=== PATIENT | male | born 1965 | race Caucasian/White ===

== ENCOUNTER 2017-07-21 15:17 | Inpatient (IN) | payer OTHER ==
[2017-07-21 16:56] VITALS: BMI 26.7
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
[2017-07-21] MEDS ORDERED: MAGNESIUM HYDROX 2400MG/30ML ORAL SUSPENSION 30 ML CUP PO PRN (19:22)
[2017-07-21] MEDS ORDERED: LOPERAMIDE HCL 2 MG CAPSULE PO PRN (19:22)
[2017-07-21] MEDS ORDERED: IBUPROFEN 400 MG TABLET (FP) PO PRN (19:22)
[2017-07-21] MEDS ORDERED: guaiFENesin/D-METHORPHAN HB 10 ML UNIT-DOSE CUPS PO PRN (19:22)
[2017-07-21] MEDS ORDERED: MAG HYDROX/AL HYDROX/SIMETH 30 ML UNIT-DOSE CUP PO PRN (19:22)
[2017-07-21] MEDS ORDERED: NICOTINE POLACRILEX 2 MG GUM BC PRN (19:22)
[2017-07-21] MEDS ORDERED: MENTHOL/PHENOL 1 EACH UD MM PRN (19:22)
[2017-07-21] MEDS ORDERED: MAGNESIUM CITRATE 300 ML BOTTLE PO PRN (19:22)
[2017-07-21] MEDS ORDERED: ACETAMINOPHEN 325 MG TABLET (FP) PO PRN (19:22)
[2017-07-21] MEDS ORDERED: P-EPHED 60MG/TRIPROLIDI 2.5MG TABLET PO PRN (19:22)
[2017-07-21 21:11] LABS: URINE APPEARANCE CLEAR; URINE BILIRUBIN NEGATIVE (NEGATIVE); URINE BLOOD NEGATIVE (NEGATIVE); URINE COLOR YELLOW; URINE GLUCOSE (UA) NEGATIVE (NEGATIVE); URINE KETONE 1+ (NEGATIVE); URINE LEUK ESTERASE NEGATIVE (NEGATIVE); URINE NITRITE NEGATIVE (NEGATIVE); URINE PROTEIN NEGATIVE (NEGATIVE)
[2017-07-21] MEDS: NAPROXEN 500 MG TABLET (FP) PO SCH (21:38)
[2017-07-21] MEDS: MELATONIN 5 MG TABLETS PO SCH (21:38)
[2017-07-21] MEDS: ATORVASTATIN CA 40 MG TABLET (FP) PO SCH (21:38)
[2017-07-21] MEDS: THIAMINE HCL 100 MG TABLET (FP) PO SCH (21:39)
[2017-07-21] MEDS: chlordiazePOXIDE HCL 25 MG CAPSULE PO SCH ×2 (21:39→23:11)
[2017-07-21] MEDS: DIVALPROEX NA *ER* EXTEND REL 500 MG TABLET.SA (FP) PO SCH (23:09)
[2017-07-22] MEDS: chlordiazePOXIDE HCL 25 MG CAPSULE PO SCH ×4 (05:32→22:11)
--- NOTE | 2017-07-22 08:23 | EKG ---
Test Reason : Blood Pressure : / mmHG Vent. Rate : 094 BPM Atrial Rate : 094 BPM P-R Int : 154 ms QRS Dur : 098 ms QT Int : 392 ms P-R-T Axes : 056 051 032 degrees QTc Int : 490 ms NORMAL SINUS RHYTHM PROLONGED QT ABNORMAL ECG NO PREVIOUS ECGS AVAILABLE Confirmed by RAVI ORELLANA, LAUREN ([id number]) on 07/22/2017 8:22:46 AM Referred By: Confirmed By:LAUREN RODRIGUES MD
--- NOTE | 2017-07-22 09:03 | PN ---
BHS CIWA - CIWA Score Nausea/Vomitin-Mild Nausea/No Vomiting Muscle Tremors: 4-Moderate,w/Arms Extend Anxiety: 4-Mod. Anxious/Guarded Agitation: 4-Moderately Restless Paroxysmal Sweats: 1-Minimal Palms Moist Orientation: 0-Oriented Tacttile Disturbances: 1-Very Mild Itch/Numbness Auditory Disturbances: 0-None Visual Disturbances: 0-None Headache: 1-Very Mild CIWA-Ar Total Score: 16 BHS Progress Note (SOAP) Subjective: sweat tremor anxiety restlessness irritable mild headache and skin itch Objective: 07/22/17 09:03 Vital Signs Temperature 97.7 F 07/22/17 06:31 Pulse Rate 76 07/22/17 06:31 Respiratory Rate 18 07/22/17 06:31 Blood Pressure 106/76 07/22/17 06:31 O2 Sat by Pulse Oximetry (%) Laboratory Last Values Urine Color Yellow 07/21/17 20:00 Urine Appearance Clear 07/21/17 20:00 Urine pH 5.0 (5.0-8.0) D 07/21/17 20:00 Ur Specific [place] 1.024 (1.001-1.035) 07/21/17 20:00 Urine Protein Negative (NEGATIVE) 07/21/17 20:00 Urine Glucose (UA) Negative (NEGATIVE) 07/21/17 20:00 Urine Ketones 1+ (NEGATIVE) H 07/21/17 20:00 Urine Blood Negative (NEGATIVE) 07/21/17 20:00 Urine Nitrite Negative (NEGATIVE) 07/21/17 20:00 Urine Bilirubin Negative (NEGATIVE) 07/21/17 20:00 Urine Urobilinogen 2.0 mg/dL (0.2-1.0) 07/21/17 20:00 Ur Leukocyte Esterase Negative (NEGATIVE) 07/21/17 20:00 lab noted Assessment: 07/22/17 09:03 withdrawal sx Plan: continue detox
--- NOTE | 2017-07-22 09:13 | CONSULT ---
[facility] Psychiatric Consult - Data Date of interview: 07/22/17 Admission source: [facility] Identifying data: This is 52 years old male, single, homeless, on PA, with psychiatric hospitalization history, chronic Alcoholic, is seeking admission to detox. Substance Abuse History: Urine Drug Screen Results: BZO-Benzodiazepines. Smoking history: Current every day smoker. Have you smoked in the past 12 months: Yes. Aproximately how many cigarettes per day: 10. Hx Chewing Tobacco Use: No. Initiated information on smoking cessation: Yes. 'Breaking Loose' booklet given: 07/21/17. - Substance & Tx. History. Hx Alcohol Use: Yes. Hx Substance Use: No. Substance Use Type: Alcohol. Hx Substance Use Treatment: Yes ([facility] [place]). - Substances Abused. Alcohol. Route : Oral. Frequency: Daily. Amount used: VODKA - 1 QUART, BEER - 2 X (6 PACKS). Age of first use: 14. Date of Last Use: 07/21/17 Medical History: Patient reports history of HTN, right hip arthritis, BPH , Hypercholesterolemia, seizures. He denies suicide history. Patient was positive for benzodiazepine, reports taking librium at [facility] during recent hospitalization. Psychiatric History: Patient reports history of depression, reports recent admission to [facility] for safety, reports currently taking: Effexor XR 75mg poqd. Depakote 500mg po qhs Physical/Sexual Abuse/Trauma History: Denies Additional Comment: Urine Drug Screen Results: BZO-Benzodiazepines. Effexor XR 75mg poqd. Depakote 500mg po qhs Mental Status Exam - Mental Status Exam Alert and Oriented to: Person Cognitive Function: Fair Patient Appearance: Unkempt Mood: Sad Affect: Flat Patient Behavior: Cooperative Speech Pattern: Appropriate Voice Loudness: Mildly Soft/Quiet Thought Process: Circumstantial Thought Disorder: Being Controlled Hallucinations: Denies Suicidal Ideation: Denies Homicidal Ideation: Denies Insight/Judgement: Fair Sleep: Difficulty falling asleep Appetite: Weight loss Muscle strength/Tone: Normal Gait/Station: Normal Additional Comments: Effexor XR 75mg poqd. Depakote 500mg po qhs Psychiatric Findings - Problem List ([place] 1, 2,3) (1) Drug-induced mood disorder Current Visit: Yes Status: Acute (2) Bipolar II disorder Current Visit: Yes Status: Acute (3) Alcohol dependence with uncomplicated withdrawal Current Visit: Yes Status: Chronic (4) Alcohol related seizure Current Visit: Yes Status: Chronic - Initial Treatment Plan Initial Treatment Plan: Effexor XR 75mg poqd. Depakote 500mg po qhs
[2017-07-22 10:14] LABS: ALBUMIN 3.4 g/dl (3.4-5.0); ANION GAP 9 (8-16); BILIRUBIN,TOTAL 0.6 mg/dL (0.2-1.0); BLOOD UREA NITROGEN 20 mg/dL (7-18); CHLORIDE 104 mmol/L (98-107); CO2 27 mmol/L (21-32); CREATININE 0.9 mg/dL (0.7-1.3); GLUCOSE,RANDOM 93 mg/dL (74-106); POTASSIUM 4.3 mmol/L (3.5-5.1); SGOT/AST 21 U/L (15-37); SGPT/ALT 41 U/L (12-78); SODIUM 140 mmol/L (136-145); TOT PROT 6.3 g/dl (6.4-8.2)
[2017-07-22 10:15] LABS: ALK PHOS 80 U/L (45-117)
[2017-07-22 10:16] LABS: HEMOGLOBIN 12.7 GM/dL (11.7-16.9); MCH 31.1 pg (25.7-33.7); MCHC 34.3 g/dl (32.0-35.9); MEAN CELL VOLUME 90.7 fl (80-96); MEAN PLT VOLUME 7.9 fl (7.5-11.1); PLATELET COUNT 303 K/MM3 (134-434); RBC 4.07 M/mm3 (4.00-5.60); RDW 13.3 % (11.9-15.9); WHITE BLOOD COUNT 10.5 K/mm3 (4.0-10.0)
[2017-07-22] MEDS: PRENATAL VITAMINS W/ FOLIC ACID TABLET (FP) PO SCH (10:22)
[2017-07-22] MEDS: amLODIPine BESYLATE 5 MG TABLET (FP) PO SCH (10:23)
[2017-07-22] MEDS: PANTOPRAZOLE 40 MG TABLET (FP) PO SCH (10:23)
[2017-07-22] MEDS: NAPROXEN 500 MG TABLET (FP) PO SCH ×2 (10:23→22:12)
[2017-07-22] MEDS: NICOTINE 14 MG/24 HOURS TOPICAL PATCH TD SCH (10:24)
[2017-07-22] MEDS: FINASTERIDE 5 MG TABLET (FP) PO SCH (10:24)
[2017-07-22] MEDS: VENLAFAXINE HCL 75 MG E.R. CAPSULES (FP) PO SCH (10:24)
[2017-07-22] MEDS: chlordiazePOXIDE HCL 25 MG CAPSULE PO PRN (14:35)
[2017-07-22] MEDS: DIVALPROEX NA *ER* EXTEND REL 500 MG TABLET.SA (FP) PO SCH (22:12)
[2017-07-22] MEDS: ATORVASTATIN CA 40 MG TABLET (FP) PO SCH (22:12)
[2017-07-22] MEDS: MELATONIN 5 MG TABLETS PO SCH (22:14)
[2017-07-22] MEDS: THIAMINE HCL 100 MG TABLET (FP) PO SCH (22:14)
[2017-07-23] MEDS: chlordiazePOXIDE HCL 25 MG CAPSULE PO SCH ×3 (05:43→17:41)
[2017-07-23] MEDS: NAPROXEN 500 MG TABLET (FP) PO SCH ×2 (10:42→22:24)
[2017-07-23] MEDS: PRENATAL VITAMINS W/ FOLIC ACID TABLET (FP) PO SCH (10:42)
[2017-07-23] MEDS: VENLAFAXINE HCL 75 MG E.R. CAPSULES (FP) PO SCH (10:42)
[2017-07-23] MEDS: PANTOPRAZOLE 40 MG TABLET (FP) PO SCH (10:42)
[2017-07-23] MEDS: amLODIPine BESYLATE 5 MG TABLET (FP) PO SCH (10:43)
[2017-07-23] MEDS: NICOTINE 14 MG/24 HOURS TOPICAL PATCH TD SCH (10:43)
[2017-07-23] MEDS: FINASTERIDE 5 MG TABLET (FP) PO SCH (10:43)
--- NOTE | 2017-07-23 10:47 | PN ---
S CIWA - CIWA Score Nausea/Vomitin Muscle Tremors: 3 Anxiety: 2 Agitation: 2 Paroxysmal Sweats: 3 Orientation: 0-Oriented Tacttile Disturbances: 2-Mild Itch/Numbness/Burn Auditory Disturbances: 0-None Visual Disturbances: 0-None Headache: 0-None Present CIWA-Ar Total Score: 14 S Progress Note (SOAP) Subjective: interrupted sleep, sweats, rt hip arthritis Objective: 07/23/17 10:43 Vital Signs Temperature 97.2 F L 07/23/17 09:38 Pulse Rate 80 07/23/17 09:38 Respiratory Rate 18 07/23/17 09:38 Blood Pressure 106/73 07/23/17 09:38 O2 Sat by Pulse Oximetry (%) Vital Signs Temperature 97.2 F L 07/23/17 09:38 Pulse Rate 80 07/23/17 09:38 Respiratory Rate 18 07/23/17 09:38 Blood Pressure 106/73 07/23/17 09:38 O2 Sat by Pulse Oximetry (%) Laboratory Tests 07/21/17 07/22/17 07/22/17 20:00 07:30 07:30 WBC 10.5 H D RBC 4.07 Hgb 12.7 Hct 37.0 MCV 90.7 MCH 31.1 MCHC 34.3 RDW 13.3 Plt Count 303 D MPV 7.9 Sodium 140 Potassium 4.3 Chloride 104 Carbon Dioxide 27 Anion Gap 9 BUN 20 H Creatinine 0.9 Creat Clearance w eGFR > 60 Random Glucose 93 Calcium 9.0 Total Bilirubin 0.6 D AST 21 D ALT 41 Alkaline Phosphatase 80 Total Protein 6.3 L Albumin 3.4 Urine Color Yellow Urine Appearance Clear Urine pH 5.0 D Ur Specific [place] 1.024 Urine Protein Negative Urine Glucose (UA) Negative Urine Ketones 1+ H Urine Blood Negative Urine Nitrite Negative Urine Bilirubin Negative Urine Urobilinogen 2.0 Ur Leukocyte Esterase Negative RPR Titer HIV 1&2 Antibody Screen HIV P24 Antigen 07/22/17 07/22/17 07:30 07:30 WBC RBC Hgb Hct MCV MCH MCHC RDW Plt Count MPV Sodium Potassium Chloride Carbon Dioxide Anion Gap BUN Creatinine Creat Clearance w eGFR Random Glucose Calcium Total Bilirubin AST ALT Alkaline Phosphatase Total Protein Albumin Urine Color Urine Appearance Urine pH Ur Specific [place] Urine Protein Urine Glucose (UA) Urine Ketones Urine Blood Urine Nitrite Urine Bilirubin Urine Urobilinogen Ur Leukocyte Esterase RPR Titer Nonreactive HIV 1&2 Antibody Screen Negative HIV P24 Antigen Negative pt aox3 in nad ambulating with cane Assessment: 07/23/17 10:45 withdrawal sx's rt hip arthritis Plan: cont. detox increase fluids lidocaine patch
[2017-07-23] MEDS: LIDOCAINE 5% TOPICAL PATCH TP SCH (12:33)
[2017-07-23] MEDS: chlordiazePOXIDE HCL 25 MG CAPSULE PO PRN (12:35)
[2017-07-23] MEDS: MELATONIN 5 MG TABLETS PO SCH (22:24)
[2017-07-23] MEDS: chlordiazePOXIDE 5 MG CAPSULE PO SCH (22:25)
[2017-07-23] MEDS: ATORVASTATIN CA 40 MG TABLET (FP) PO SCH (22:25)
[2017-07-23] MEDS: DIVALPROEX NA *ER* EXTEND REL 500 MG TABLET.SA (FP) PO SCH (22:25)
[2017-07-23] MEDS: THIAMINE HCL 100 MG TABLET (FP) PO SCH (22:25)
[2017-07-23] MEDS: LIDOCAINE PATCH REMOVAL MC SCH (22:28)
[2017-07-24] MEDS: chlordiazePOXIDE 5 MG CAPSULE PO SCH ×3 (07:15→17:18)
[2017-07-24] MEDS: PRENATAL VITAMINS W/ FOLIC ACID TABLET (FP) PO SCH (10:31)
[2017-07-24] MEDS: amLODIPine BESYLATE 5 MG TABLET (FP) PO SCH (10:31)
[2017-07-24] MEDS: NAPROXEN 500 MG TABLET (FP) PO SCH ×2 (10:32→22:30)
[2017-07-24] MEDS: FINASTERIDE 5 MG TABLET (FP) PO SCH (10:32)
[2017-07-24] MEDS: PANTOPRAZOLE 40 MG TABLET (FP) PO SCH (10:32)
[2017-07-24] MEDS: VENLAFAXINE HCL 75 MG E.R. CAPSULES (FP) PO SCH (10:32)
[2017-07-24] MEDS: LIDOCAINE 5% TOPICAL PATCH TP SCH (10:33)
[2017-07-24] MEDS: NICOTINE 14 MG/24 HOURS TOPICAL PATCH TD SCH (10:33)
--- NOTE | 2017-07-24 21:28 | PN ---
BHS Progress Note (SOAP) Subjective: sweats shakes Objective: 07/24/17 21:27 ambulates with cane A & O x 3 not in acute distress Assessment: 07/24/17 21:27 withdrawal sx Plan: continue detox
[2017-07-24] MEDS: chlordiazePOXIDE HCL 10 MG CAPSULE PO SCH (22:30)
[2017-07-24] MEDS: MELATONIN 5 MG TABLETS PO SCH (22:30)
[2017-07-24] MEDS: ATORVASTATIN CA 40 MG TABLET (FP) PO SCH (22:31)
[2017-07-24] MEDS: DIVALPROEX NA *ER* EXTEND REL 500 MG TABLET.SA (FP) PO SCH (22:31)
[2017-07-24] MEDS: THIAMINE HCL 100 MG TABLET (FP) PO SCH (22:31)
[2017-07-24] MEDS: LIDOCAINE PATCH REMOVAL MC SCH (22:32)
[2017-07-25] MEDS: chlordiazePOXIDE HCL 10 MG CAPSULE PO SCH ×2 (05:38→10:51)
[2017-07-25 06:06] VITALS: TEMP 97.5
--- NOTE | 2017-07-25 09:32 | DS ---
[facility] Detox Discharge Summary Admission Date: 07/21/17 Discharge Date: 07/25/17 - History Present History: Alcohol Dependence Additional Comments: 52 years old male admitted for alcohol detox completed detox regimen tolerated well wants to go to [facility] for rehab to remain sober - Physical Exam Results Vital Signs: Vital Signs Temperature 97.5 F L 07/25/17 06:00 Pulse Rate 69 07/25/17 06:00 Respiratory Rate 18 07/25/17 06:00 Blood Pressure 97/64 07/25/17 06:00 O2 Sat by Pulse Oximetry (%) Pertinent Admission Physical Exam Findings: withdrawal sx Vital Signs Temperature 97.5 F L 07/25/17 06:00 Pulse Rate 69 07/25/17 06:00 Respiratory Rate 18 07/25/17 06:00 Blood Pressure 97/64 07/25/17 06:00 O2 Sat by Pulse Oximetry (%) Laboratory Last Values WBC 10.5 K/mm3 (4.0-10.0) H D 07/22/17 07:30 RBC 4.07 M/mm3 (4.00-5.60) 07/22/17 07:30 Hgb 12.7 GM/dL (11.7-16.9) 07/22/17 07:30 Hct 37.0 % (35.4-49) 07/22/17 07:30 MCV 90.7 fl (80-96) 07/22/17 07:30 MCH 31.1 pg (25.7-33.7) 07/22/17 07:30 MCHC 34.3 g/dl (32.0-35.9) 07/22/17 07:30 RDW 13.3 % (11.9-15.9) 07/22/17 07:30 Plt Count 303 K/MM3 (134-434) D 07/22/17 07:30 MPV 7.9 fl (7.5-11.1) 07/22/17 07:30 Sodium 140 mmol/L (136-145) 07/22/17 07:30 Potassium 4.3 mmol/L (3.5-5.1) 07/22/17 07:30 Chloride 104 mmol/L (98-107) 07/22/17 07:30 Carbon Dioxide 27 mmol/L (21-32) 07/22/17 07:30 Anion Gap 9 (8-16) 07/22/17 07:30 BUN 20 mg/dL (7-18) H 07/22/17 07:30 Creatinine 0.9 mg/dL (0.7-1.3) 07/22/17 07:30 Creat Clearance w eGFR > 60 (>60) 07/22/17 07:30 Random Glucose 93 mg/dL (74-106) 07/22/17 07:30 Calcium 9.0 mg/dL (8.5-10.1) 07/22/17 07:30 Total Bilirubin 0.6 mg/dL (0.2-1.0) D 07/22/17 07:30 AST 21 U/L (15-37) D 07/22/17 07:30 ALT 41 U/L (12-78) 07/22/17 07:30 Alkaline Phosphatase 80 U/L (45-117) 07/22/17 07:30 Total Protein 6.3 g/dl (6.4-8.2) L 07/22/17 07:30 Albumin 3.4 g/dl (3.4-5.0) 07/22/17 07:30 Urine Color Yellow 07/21/17 20:00 Urine Appearance Clear 07/21/17 20:00 Urine pH 5.0 (5.0-8.0) D 07/21/17 20:00 Ur Specific [place] 1.024 (1.001-1.035) 07/21/17 20:00 Urine Protein Negative (NEGATIVE) 07/21/17 20:00 Urine Glucose (UA) Negative (NEGATIVE) 07/21/17 20:00 Urine Ketones 1+ (NEGATIVE) H 07/21/17 20:00 Urine Blood Negative (NEGATIVE) 07/21/17 20:00 Urine Nitrite Negative (NEGATIVE) 07/21/17 20:00 Urine Bilirubin Negative (NEGATIVE) 07/21/17 20:00 Urine Urobilinogen 2.0 mg/dL (0.2-1.0) 07/21/17 20:00 Ur Leukocyte Esterase Negative (NEGATIVE) 07/21/17 20:00 Valproic Acid 21.624 ug/ml (50-100) L 07/23/17 09:30 RPR Titer Nonreactive (NONREACTIVE) 07/22/17 07:30 HIV 1&2 Antibody Screen Negative 07/22/17 07:30 HIV P24 Antigen Negative 07/22/17 07:30 lab noted - Treatment Hospital Course: Detox Protocol Followed, Detoxed Safely, Responded well, Discharged Condition Good, Rehab Referral Accepted Patient has Accepted a Rehab Referral to: [facility] - Medication Discharge Medications: Ambulatory Orders Divalproex Sodium [Divalproex Sodium ER] 500 mg PO HS 07/21/17 Docusate Sodium [Colace] 100 mg PO TID 07/21/17 Venlafaxine HCl ER [Effexor Xr -] 75 mg PO DAILY #30 cap.er.24h 07/22/17 Amlodipine Besylate [Norvasc -] 5 mg PO DAILY tablet 07/25/17 Atorvastatin Ca [Lipitor] 40 mg PO HS #30 tablet 07/25/17 Finasteride [Proscar -] 5 mg PO DAILY #30 tablet 07/25/17 Pantoprazole Sodium [Protonix] 40 mg PO DAILY #30 tablet. 07/25/17 - Diagnosis (1) Bipolar II disorder Current Visit: Yes Status: Suspected (2) GERD (gastroesophageal reflux disease) Current Visit: Yes Status: Chronic Qualifiers: Esophagitis presence: without esophagitis Qualified Code(s): K21.9 - Gastro -esophageal reflux disease without esophagitis (3) Hypercholesteremia Current Visit: Yes Status: Chronic (4) Alcohol dependence with uncomplicated withdrawal Current Visit: Yes Status: Acute (5) BPH (benign prostatic hyperplasia) Current Visit: Yes Status: Chronic Qualifiers: Lower urinary tract symptom presence: presence of symptoms unspecified - AMA Did Patient Leave Against Medical Advice: No
[2017-07-25] MEDS: NAPROXEN 500 MG TABLET (FP) PO SCH (10:52)
[2017-07-25] MEDS: NICOTINE 14 MG/24 HOURS TOPICAL PATCH TD SCH (10:52)
[2017-07-25] MEDS: amLODIPine BESYLATE 5 MG TABLET (FP) PO SCH (10:52)
[2017-07-25] MEDS: PRENATAL VITAMINS W/ FOLIC ACID TABLET (FP) PO SCH (10:52)
[2017-07-25] MEDS: PANTOPRAZOLE 40 MG TABLET (FP) PO SCH (10:52)
[2017-07-25] MEDS: VENLAFAXINE HCL 75 MG E.R. CAPSULES (FP) PO SCH (10:52)
[2017-07-25] MEDS: LIDOCAINE 5% TOPICAL PATCH TP SCH (10:52)
[2017-07-25] MEDS: FINASTERIDE 5 MG TABLET (FP) PO SCH (10:53)
[2017-07-25 13:06] VITALS: BP 120/73; PULSE 81
== END 2017-07-25 12:32 | disposition home or self-care (01) | DRG 775 ==
LOC: YASAS 15:17 → Y6N 18:31
PROVIDERS: ADMIT Internal Medicine; ATTEND Internal Medicine
PROC: HZ2ZZZZ Detoxification Services for Substance Abuse Treatment (ICD-10-PCS; principal; 2017-07-21)
DX: F10.230 Alcohol dependence with withdrawal, uncomplicated (principal); F31.81 Bipolar II disorder; I10 Essential (primary) hypertension; K21.9 Gastro-esophageal reflux disease without esophagitis; G40.509 Epileptic seizures related to external causes, not intractable, without status epilepticus; E78.00 Pure hypercholesterolemia, unspecified; M16.11 Unilateral primary osteoarthritis, right hip; N40.0 Benign prostatic hyperplasia without lower urinary tract symptoms
CPT/HCPCS: 36415; 80053; 80164; 81003; 85027; 86593; 87389; 93005; 93010

== ENCOUNTER 2017-07-26 08:35 | Inpatient (IN) | payer OTHER ==
[2017-07-26 10:41] VITALS: BMI 27.8
--- NOTE | 2017-07-26 11:34 | HP ---
[facility] Re[facility] Assess/Revision - Admission History Admitted to Rehab from: [facility] Date of Admission to Rehab: 07/26/2017 - Vital signs Vital Signs: Vital Signs Period Temp Pulse Resp BP Sys/[place] Pulse Ox Last 24 Hr 97.1 F 77 20 109/70 - Findings Detox History & Physical reviewed: Yes Concur with findings: Yes Inpatient Rehab Admission - Initial Determination Are CD services needed?: Yes Free of communicable disease: Yes Not in need of hospitalization: Yes - Rehab Admission Criteria Previous failed treatment: Yes Lacks judgement: Yes Patient is meeting Inpatient Rehab admission criteria:: Yes
[2017-07-26] MEDS ORDERED: LOPERAMIDE HCL 2 MG CAPSULE PO PRN (11:35)
[2017-07-26] MEDS ORDERED: MENTHOL/PHENOL 1 EACH UD MM PRN (11:35)
[2017-07-26] MEDS ORDERED: IBUPROFEN 400 MG TABLET (FP) PO PRN (11:35)
[2017-07-26] MEDS ORDERED: guaiFENesin/D-METHORPHAN HB 10 ML UNIT-DOSE CUPS PO PRN (11:35)
[2017-07-26] MEDS ORDERED: hydrOXYzine PAMOATE 50 MG CAPSULE (FP) PO PRN (11:35)
[2017-07-26] MEDS ORDERED: MAGNESIUM CITRATE 300 ML BOTTLE PO PRN (11:35)
[2017-07-26] MEDS ORDERED: MAGNESIUM HYDROX 2400MG/30ML ORAL SUSPENSION 30 ML CUP PO PRN (11:35)
[2017-07-26] MEDS ORDERED: P-EPHED 60MG/TRIPROLIDI 2.5MG TABLET PO PRN (11:35)
[2017-07-26] MEDS ORDERED: MAG HYDROX/AL HYDROX/SIMETH 30 ML UNIT-DOSE CUP PO PRN (11:35)
[2017-07-26] MEDS ORDERED: ACETAMINOPHEN 325 MG TABLET (FP) PO PRN (11:35)
[2017-07-26] MEDS: GABAPENTIN 300 MG CAPSULE (FP) PO SCH ×2 (15:40→21:06)
[2017-07-26] MEDS: SENNOSIDES 8.6MG TABLET (FP) PO SCH (15:40)
[2017-07-26] MEDS: LIDOCAINE 5% TOPICAL PATCH TP SCH (15:40)
[2017-07-26] MEDS: NICOTINE 21 MG/24 HOURS TOPICAL PATCH TD SCH (15:40)
[2017-07-26 16:48] LABS: URINE APPEARANCE CLEAR; URINE BILIRUBIN NEGATIVE (<2.0 mg/dL); URINE BLOOD NEGATIVE (NEGATIVE); URINE COLOR DKYELLOW; URINE GLUCOSE (UA) NEGATIVE (NEGATIVE); URINE KETONE NEGATIVE (NEGATIVE); URINE LEUK ESTERASE NEGATIVE (NEGATIVE); URINE NITRITE NEGATIVE (NEGATIVE); URINE PROTEIN NEGATIVE (NEGATIVE); URINE UROBILINOGEN NEGATIVE mg/dL (0.2-1.0)
[2017-07-26] MEDS: MELATONIN 5 MG TABLETS PO SCH (21:06)
[2017-07-26] MEDS: DOCUSATE SODIUM 100 MG CAPSULE (FP) PO SCH (21:06)
[2017-07-26] MEDS: CYCLOBENZAPRINE HCL 5 MG TABLET PO SCH (21:06)
[2017-07-26] MEDS: THIAMINE HCL 100 MG TABLET (FP) PO SCH (21:06)
[2017-07-26] MEDS: LIDOCAINE PATCH REMOVAL MC SCH (21:07)
[2017-07-26] MEDS: ATORVASTATIN CA 40 MG TABLET (FP) PO SCH (21:07)
[2017-07-26] MEDS: NAPROXEN 500 MG TABLET (FP) PO PRN (21:09)
[2017-07-27] MEDS: GABAPENTIN 300 MG CAPSULE (FP) PO SCH ×3 (07:14→21:07)
[2017-07-27] MEDS: LIDOCAINE 5% TOPICAL PATCH TP SCH (09:54)
[2017-07-27] MEDS: NICOTINE 21 MG/24 HOURS TOPICAL PATCH TD SCH (09:54)
[2017-07-27] MEDS: PANTOPRAZOLE 40 MG TABLET (FP) PO SCH (09:55)
[2017-07-27] MEDS: PRENATAL VITAMINS W/ FOLIC ACID TABLET (FP) PO SCH (09:55)
[2017-07-27] MEDS: amLODIPine BESYLATE 5 MG TABLET (FP) PO SCH (09:56)
[2017-07-27] MEDS: SENNOSIDES 8.6MG TABLET (FP) PO SCH (09:56)
[2017-07-27] MEDS: FINASTERIDE 5 MG TABLET (FP) PO SCH (09:56)
--- NOTE | 2017-07-27 12:14 | HP ---
Psychiatrist Admission - Data Date of interview: 07/27/17 Admission source: 6N Identifying data: This is the first 5N inpatient rehabilitation admission for this 52 year old sing[place] unemployed and currently homeless male, supported on PA. Medical History: HTN, right hip arthritis, BPH ,Hypercholesterolemia, seizures.smokes ciagrettes 10 a day. Psychiatric History: Patient reports has been depressed since age of 14, states was raised in alcoholic family, first psychiatric hospitalization in 2008 to [facility] in [facility] for one month, states had first manic episode and treatment with Prozac, was on and off treatment after and his second hospitalization for [address] [facility] in [place] 2 weeks ago, states he had a 15 ECT sessions and d/c whithout referrals and he relapses white drinking. He is currently on Zyprexa 5 mg po hs, Depakote 500 mg po hs, Effexor 75 mg po daily, past good respose to Wellbutrin and asked to add medication to his current treatment. Patient was seen by and continued Depakote and Effexor Physical/Sexual Abuse/Trauma History: Denies Vital Signs: Vital Signs - 24 hr 07/26/17 07/27/17 07/27/17 13:50 00:30 03:30 Temperature 98.4 F Pulse Rate 82 Respiratory 18 18 18 Rate Blood Pressure 111/70 07/27/17 06:40 Temperature Pulse Rate Respiratory 18 Rate Blood Pressure Allergies/Adverse Reactions: Allergies Allergy/AdvReac Type Severity Reaction Status Date / Time Penicillins Allergy Severe Rash Verified 07/26/17 10:50 Date of last physical exam: 07/22/17 Concur with the findings of this exam: Yes - Substance Abuse/Tx History Hx Alcohol Use: Yes Hx Substance Use: No Substance Use Type: Alcohol (daily 2 pints of vodka, 2-6 pks of berr daily.) Hx Substance Use Treatment: Yes Mental Status Exam - Mental Status Exam Alert and Oriented to: Time, Place, Person Cognitive Function: Good Patient Appearance: Well Groomed Mood: Depressed, Sad, Anxious Affect: Appropriate, Mood Congruent Patient Behavior: Appropriate, Cooperative Speech Pattern: Clear, Appropriate Voice Loudness: Normal Thought Process: Goal Oriented Thought Disorder: Not Present Hallucinations: Denies Suicidal Ideation: Denies Homicidal Ideation: Denies Insight/Judgement: Fair Sleep: Difficulty falling asleep Appetite: Fair Muscle strength/Tone: Normal Gait/Station: Other (ambulates with cane) Psychiatric Findings - Problem List ([place] 1, 2,3) (1) Alcohol dependence Current Visit: Yes Status: Acute (2) Nicotine dependence Current Visit: Yes Status: Acute (3) Bipolar I, most recent episode depressed, severe Current Visit: Yes Status: Acute (4) BPH (benign prostatic hyperplasia) Current Visit: No Status: Chronic (5) GERD (gastroesophageal reflux disease) Current Visit: No Status: Chronic Qualifiers: - Initial Treatment Plan Initial Treatment Plan: Will continue Zyprexa, Depakote, Effexor, will add Wellbutrin 100 mg daily, will monitor progress.
[2017-07-27] MEDS: MELATONIN 5 MG TABLETS PO SCH (21:07)
[2017-07-27] MEDS: DIVALPROEX SODIUM 500 MG TABLET E.C. PO SCH (21:07)
[2017-07-27] MEDS: DOCUSATE SODIUM 100 MG CAPSULE (FP) PO SCH (21:07)
[2017-07-27] MEDS: OLANZapine 5 MG TABLET PO SCH (21:07)
[2017-07-27] MEDS: THIAMINE HCL 100 MG TABLET (FP) PO SCH (21:07)
[2017-07-27] MEDS: CYCLOBENZAPRINE HCL 5 MG TABLET PO SCH (21:07)
[2017-07-27] MEDS: ATORVASTATIN CA 40 MG TABLET (FP) PO SCH (21:08)
[2017-07-27] MEDS: LIDOCAINE PATCH REMOVAL MC SCH (21:08)
[2017-07-28] MEDS: GABAPENTIN 300 MG CAPSULE (FP) PO SCH ×3 (06:20→21:09)
[2017-07-28] MEDS: buPROPion HCL 100 MG TABLET PO SCH (09:52)
[2017-07-28] MEDS: PRENATAL VITAMINS W/ FOLIC ACID TABLET (FP) PO SCH (09:52)
[2017-07-28] MEDS: FINASTERIDE 5 MG TABLET (FP) PO SCH (09:52)
[2017-07-28] MEDS: PANTOPRAZOLE 40 MG TABLET (FP) PO SCH (09:52)
[2017-07-28] MEDS: SENNOSIDES 8.6MG TABLET (FP) PO SCH (09:52)
[2017-07-28] MEDS: VENLAFAXINE HCL 75 MG E.R. CAPSULES (FP) PO SCH (09:52)
[2017-07-28] MEDS: NICOTINE 21 MG/24 HOURS TOPICAL PATCH TD SCH (09:53)
[2017-07-28] MEDS: amLODIPine BESYLATE 5 MG TABLET (FP) PO SCH (09:53)
[2017-07-28] MEDS: LIDOCAINE 5% TOPICAL PATCH TP SCH (09:56)
[2017-07-28] MEDS ORDERED: OLANZapine 5 MG TABLET PO SCH (10:00)
[2017-07-28] MEDS: NAPROXEN 500 MG TABLET (FP) PO PRN (20:28)
[2017-07-28] MEDS: ATORVASTATIN CA 40 MG TABLET (FP) PO SCH (21:09)
[2017-07-28] MEDS: CYCLOBENZAPRINE HCL 5 MG TABLET PO SCH (21:09)
[2017-07-28] MEDS: DIVALPROEX SODIUM 500 MG TABLET E.C. PO SCH (21:09)
[2017-07-28] MEDS: THIAMINE HCL 100 MG TABLET (FP) PO SCH (21:09)
[2017-07-28] MEDS: MELATONIN 5 MG TABLETS PO SCH (21:09)
[2017-07-28] MEDS: DOCUSATE SODIUM 100 MG CAPSULE (FP) PO SCH (21:09)
[2017-07-28] MEDS: OLANZapine 5 MG TABLET PO SCH (21:09)
[2017-07-28] MEDS: LIDOCAINE PATCH REMOVAL MC SCH (21:10)
[2017-07-28] MEDS: NICOTINE POLACRILEX 2 MG GUM BUC PRN (21:11)
[2017-07-29] MEDS: GABAPENTIN 300 MG CAPSULE (FP) PO SCH ×3 (07:05→22:21)
[2017-07-29] MEDS: VENLAFAXINE HCL 75 MG E.R. CAPSULES (FP) PO SCH (09:00)
[2017-07-29] MEDS: buPROPion HCL 100 MG TABLET PO SCH (09:53)
[2017-07-29] MEDS: SENNOSIDES 8.6MG TABLET (FP) PO SCH (09:53)
[2017-07-29] MEDS: PANTOPRAZOLE 40 MG TABLET (FP) PO SCH (09:53)
[2017-07-29] MEDS: PRENATAL VITAMINS W/ FOLIC ACID TABLET (FP) PO SCH (09:53)
[2017-07-29] MEDS: FINASTERIDE 5 MG TABLET (FP) PO SCH (09:54)
[2017-07-29] MEDS: LIDOCAINE 5% TOPICAL PATCH TP SCH (09:54)
[2017-07-29] MEDS: NICOTINE 21 MG/24 HOURS TOPICAL PATCH TD SCH (09:55)
[2017-07-29] MEDS: amLODIPine BESYLATE 5 MG TABLET (FP) PO SCH (09:56)
[2017-07-29] MEDS: NAPROXEN 500 MG TABLET (FP) PO PRN ×2 (09:56→22:21)
[2017-07-29] MEDS: NICOTINE POLACRILEX 2 MG GUM BUC PRN (20:04)
[2017-07-29] MEDS: THIAMINE HCL 100 MG TABLET (FP) PO SCH (22:20)
[2017-07-29] MEDS: ATORVASTATIN CA 40 MG TABLET (FP) PO SCH (22:21)
[2017-07-29] MEDS: DIVALPROEX SODIUM 500 MG TABLET E.C. PO SCH (22:21)
[2017-07-29] MEDS: LIDOCAINE PATCH REMOVAL MC SCH (22:21)
[2017-07-29] MEDS: DOCUSATE SODIUM 100 MG CAPSULE (FP) PO SCH (22:21)
[2017-07-29] MEDS: CYCLOBENZAPRINE HCL 5 MG TABLET PO SCH (22:21)
[2017-07-29] MEDS: OLANZapine 5 MG TABLET PO SCH (22:21)
[2017-07-29] MEDS: MELATONIN 5 MG TABLETS PO SCH (22:21)
[2017-07-30] MEDS: GABAPENTIN 300 MG CAPSULE (FP) PO SCH ×3 (06:54→21:07)
[2017-07-30] MEDS: NICOTINE POLACRILEX 2 MG GUM BUC PRN ×3 (06:55→21:07)
[2017-07-30] MEDS: VENLAFAXINE HCL 75 MG E.R. CAPSULES (FP) PO SCH (07:04)
[2017-07-30] MEDS: NAPROXEN 500 MG TABLET (FP) PO PRN ×2 (07:37→21:07)
[2017-07-30] MEDS: buPROPion HCL 100 MG TABLET PO SCH (10:16)
[2017-07-30] MEDS: SENNOSIDES 8.6MG TABLET (FP) PO SCH (10:16)
[2017-07-30] MEDS: PANTOPRAZOLE 40 MG TABLET (FP) PO SCH (10:16)
[2017-07-30] MEDS: FINASTERIDE 5 MG TABLET (FP) PO SCH (10:17)
[2017-07-30] MEDS: PRENATAL VITAMINS W/ FOLIC ACID TABLET (FP) PO SCH (10:17)
[2017-07-30] MEDS: amLODIPine BESYLATE 5 MG TABLET (FP) PO SCH (10:17)
[2017-07-30] MEDS: NICOTINE 21 MG/24 HOURS TOPICAL PATCH TD SCH (10:18)
[2017-07-30] MEDS: LIDOCAINE 5% TOPICAL PATCH TP SCH (10:18)
[2017-07-30] MEDS: CYCLOBENZAPRINE HCL 5 MG TABLET PO SCH (21:07)
[2017-07-30] MEDS: OLANZapine 5 MG TABLET PO SCH (21:07)
[2017-07-30] MEDS: DOCUSATE SODIUM 100 MG CAPSULE (FP) PO SCH (21:07)
[2017-07-30] MEDS: DIVALPROEX SODIUM 500 MG TABLET E.C. PO SCH (21:07)
[2017-07-30] MEDS: MELATONIN 5 MG TABLETS PO SCH (21:07)
[2017-07-30] MEDS: THIAMINE HCL 100 MG TABLET (FP) PO SCH (21:07)
[2017-07-30] MEDS: ATORVASTATIN CA 40 MG TABLET (FP) PO SCH (21:08)
[2017-07-30] MEDS: LIDOCAINE PATCH REMOVAL MC SCH (21:09)
[2017-07-31] MEDS: GABAPENTIN 300 MG CAPSULE (FP) PO SCH ×3 (06:34→21:17)
[2017-07-31] MEDS: NAPROXEN 500 MG TABLET (FP) PO PRN ×2 (06:35→21:17)
[2017-07-31] MEDS: NICOTINE POLACRILEX 2 MG GUM BUC PRN ×3 (06:36→20:13)
[2017-07-31] MEDS: VENLAFAXINE HCL 75 MG E.R. CAPSULES (FP) PO SCH (07:43)
[2017-07-31] MEDS: amLODIPine BESYLATE 5 MG TABLET (FP) PO SCH (09:55)
[2017-07-31] MEDS: PRENATAL VITAMINS W/ FOLIC ACID TABLET (FP) PO SCH (09:56)
[2017-07-31] MEDS: buPROPion HCL 100 MG TABLET PO SCH (09:56)
[2017-07-31] MEDS: SENNOSIDES 8.6MG TABLET (FP) PO SCH (09:56)
[2017-07-31] MEDS: PANTOPRAZOLE 40 MG TABLET (FP) PO SCH (09:56)
[2017-07-31] MEDS: FINASTERIDE 5 MG TABLET (FP) PO SCH (09:56)
[2017-07-31] MEDS: LIDOCAINE 5% TOPICAL PATCH TP SCH (09:57)
[2017-07-31] MEDS: NICOTINE 21 MG/24 HOURS TOPICAL PATCH TD SCH (09:57)
[2017-07-31] MEDS: THIAMINE HCL 100 MG TABLET (FP) PO SCH (21:16)
[2017-07-31] MEDS: OLANZapine 5 MG TABLET PO SCH (21:17)
[2017-07-31] MEDS: DOCUSATE SODIUM 100 MG CAPSULE (FP) PO SCH (21:17)
[2017-07-31] MEDS: CYCLOBENZAPRINE HCL 5 MG TABLET PO SCH (21:17)
[2017-07-31] MEDS: MELATONIN 5 MG TABLETS PO SCH (21:17)
[2017-07-31] MEDS: LIDOCAINE PATCH REMOVAL MC SCH (21:18)
[2017-07-31] MEDS: DIVALPROEX SODIUM 500 MG TABLET E.C. PO SCH (21:18)
[2017-07-31] MEDS: ATORVASTATIN CA 40 MG TABLET (FP) PO SCH (21:18)
[2017-08-01] MEDS: GABAPENTIN 300 MG CAPSULE (FP) PO SCH ×3 (06:43→21:06)
[2017-08-01] MEDS: NAPROXEN 500 MG TABLET (FP) PO PRN ×2 (06:43→21:06)
[2017-08-01] MEDS: NICOTINE POLACRILEX 2 MG GUM BUC PRN ×3 (06:43→19:47)
[2017-08-01] MEDS: VENLAFAXINE HCL 75 MG E.R. CAPSULES (FP) PO SCH (07:44)
[2017-08-01] MEDS: buPROPion HCL 100 MG TABLET PO SCH (10:07)
[2017-08-01] MEDS: amLODIPine BESYLATE 5 MG TABLET (FP) PO SCH (10:07)
[2017-08-01] MEDS: PANTOPRAZOLE 40 MG TABLET (FP) PO SCH (10:07)
[2017-08-01] MEDS: PRENATAL VITAMINS W/ FOLIC ACID TABLET (FP) PO SCH (10:07)
[2017-08-01] MEDS: FINASTERIDE 5 MG TABLET (FP) PO SCH (10:08)
[2017-08-01] MEDS: SENNOSIDES 8.6MG TABLET (FP) PO SCH (10:08)
[2017-08-01] MEDS: NICOTINE 21 MG/24 HOURS TOPICAL PATCH TD SCH (10:09)
[2017-08-01] MEDS: LIDOCAINE 5% TOPICAL PATCH TP SCH (10:09)
[2017-08-01] MEDS: DIVALPROEX SODIUM 500 MG TABLET E.C. PO SCH (21:06)
[2017-08-01] MEDS: DOCUSATE SODIUM 100 MG CAPSULE (FP) PO SCH (21:06)
[2017-08-01] MEDS: MELATONIN 5 MG TABLETS PO SCH (21:06)
[2017-08-01] MEDS: OLANZapine 5 MG TABLET PO SCH (21:06)
[2017-08-01] MEDS: CYCLOBENZAPRINE HCL 5 MG TABLET PO SCH (21:06)
[2017-08-01] MEDS: ATORVASTATIN CA 40 MG TABLET (FP) PO SCH (21:07)
[2017-08-01] MEDS: THIAMINE HCL 100 MG TABLET (FP) PO SCH (21:07)
[2017-08-01] MEDS: LIDOCAINE PATCH REMOVAL MC SCH (21:08)
[2017-08-02] MEDS: NAPROXEN 500 MG TABLET (FP) PO PRN ×2 (07:05→21:24)
[2017-08-02] MEDS: GABAPENTIN 300 MG CAPSULE (FP) PO SCH ×3 (07:05→21:23)
[2017-08-02] MEDS: NICOTINE POLACRILEX 2 MG GUM BUC PRN ×2 (07:06→10:02)
[2017-08-02] MEDS: VENLAFAXINE HCL 75 MG E.R. CAPSULES (FP) PO SCH (09:00)
[2017-08-02] MEDS: PRENATAL VITAMINS W/ FOLIC ACID TABLET (FP) PO SCH (09:58)
[2017-08-02] MEDS: PANTOPRAZOLE 40 MG TABLET (FP) PO SCH (09:58)
[2017-08-02] MEDS: amLODIPine BESYLATE 5 MG TABLET (FP) PO SCH (09:58)
[2017-08-02] MEDS: LIDOCAINE 5% TOPICAL PATCH TP SCH (09:59)
[2017-08-02] MEDS: FINASTERIDE 5 MG TABLET (FP) PO SCH (09:59)
[2017-08-02] MEDS: NICOTINE 21 MG/24 HOURS TOPICAL PATCH TD SCH (09:59)
[2017-08-02] MEDS: buPROPion HCL 100 MG TABLET PO SCH (10:00)
[2017-08-02] MEDS: SENNOSIDES 8.6MG TABLET (FP) PO SCH (10:31)
--- NOTE | 2017-08-02 10:39 | PN ---
[facility] Progress Note Note: Patient reports smoking history of 1-2 packs per day. States he would like to quit but continues to have cravings for cigarette use. Requested to increase nicotine gum dosage. Pt denies CP and SOB. Will increase nicotine gum to 4mg prn. Continue to monitor clinically.
[2017-08-02] MEDS: NICOTINE POLACRILEX 4 MG GUM BUC PRN ×3 (14:02→21:25)
[2017-08-02] MEDS: DIVALPROEX SODIUM 500 MG TABLET E.C. PO SCH (21:23)
[2017-08-02] MEDS: DOCUSATE SODIUM 100 MG CAPSULE (FP) PO SCH (21:23)
[2017-08-02] MEDS: THIAMINE HCL 100 MG TABLET (FP) PO SCH (21:24)
[2017-08-02] MEDS: OLANZapine 5 MG TABLET PO SCH (21:24)
[2017-08-02] MEDS: CYCLOBENZAPRINE HCL 5 MG TABLET PO SCH (21:24)
[2017-08-02] MEDS: MELATONIN 5 MG TABLETS PO SCH (21:24)
[2017-08-02] MEDS: LIDOCAINE PATCH REMOVAL MC SCH (21:24)
[2017-08-02] MEDS: ATORVASTATIN CA 40 MG TABLET (FP) PO SCH (21:25)
[2017-08-03] MEDS: GABAPENTIN 300 MG CAPSULE (FP) PO SCH ×3 (06:56→21:07)
[2017-08-03] MEDS: NAPROXEN 500 MG TABLET (FP) PO PRN ×2 (06:57→21:08)
[2017-08-03] MEDS: NICOTINE POLACRILEX 4 MG GUM BUC PRN ×4 (06:58→20:22)
[2017-08-03] MEDS: VENLAFAXINE HCL 75 MG E.R. CAPSULES (FP) PO SCH (07:17)
[2017-08-03] MEDS: buPROPion HCL 100 MG TABLET PO SCH (10:58)
[2017-08-03] MEDS: SENNOSIDES 8.6MG TABLET (FP) PO SCH (10:58)
[2017-08-03] MEDS: PRENATAL VITAMINS W/ FOLIC ACID TABLET (FP) PO SCH (10:58)
[2017-08-03] MEDS: amLODIPine BESYLATE 5 MG TABLET (FP) PO SCH (10:58)
[2017-08-03] MEDS: PANTOPRAZOLE 40 MG TABLET (FP) PO SCH (10:58)
[2017-08-03] MEDS: FINASTERIDE 5 MG TABLET (FP) PO SCH (10:58)
[2017-08-03] MEDS: NICOTINE 21 MG/24 HOURS TOPICAL PATCH TD SCH (10:59)
[2017-08-03] MEDS: LIDOCAINE 5% TOPICAL PATCH TP SCH (10:59)
[2017-08-03] MEDS: OLANZapine 5 MG TABLET PO SCH (21:07)
[2017-08-03] MEDS: DOCUSATE SODIUM 100 MG CAPSULE (FP) PO SCH (21:07)
[2017-08-03] MEDS: DIVALPROEX SODIUM 500 MG TABLET E.C. PO SCH (21:07)
[2017-08-03] MEDS: CYCLOBENZAPRINE HCL 5 MG TABLET PO SCH (21:07)
[2017-08-03] MEDS: MELATONIN 5 MG TABLETS PO SCH (21:07)
[2017-08-03] MEDS: THIAMINE HCL 100 MG TABLET (FP) PO SCH (21:07)
[2017-08-03] MEDS: ATORVASTATIN CA 40 MG TABLET (FP) PO SCH (21:08)
[2017-08-03] MEDS: LIDOCAINE PATCH REMOVAL MC SCH (21:08)
[2017-08-04] MEDS: NAPROXEN 500 MG TABLET (FP) PO PRN ×2 (06:10→21:13)
[2017-08-04] MEDS: GABAPENTIN 300 MG CAPSULE (FP) PO SCH ×3 (06:10→21:12)
[2017-08-04] MEDS: NICOTINE POLACRILEX 4 MG GUM BUC PRN ×5 (06:11→20:20)
[2017-08-04] MEDS: VENLAFAXINE HCL 75 MG E.R. CAPSULES (FP) PO SCH (07:19)
[2017-08-04] MEDS: SENNOSIDES 8.6MG TABLET (FP) PO SCH (09:53)
[2017-08-04] MEDS: buPROPion HCL 100 MG TABLET PO SCH (09:53)
[2017-08-04] MEDS: PANTOPRAZOLE 40 MG TABLET (FP) PO SCH (09:53)
[2017-08-04] MEDS: PRENATAL VITAMINS W/ FOLIC ACID TABLET (FP) PO SCH (09:53)
[2017-08-04] MEDS: amLODIPine BESYLATE 5 MG TABLET (FP) PO SCH (09:53)
[2017-08-04] MEDS: NICOTINE 21 MG/24 HOURS TOPICAL PATCH TD SCH (09:53)
[2017-08-04] MEDS: LIDOCAINE 5% TOPICAL PATCH TP SCH (09:53)
[2017-08-04] MEDS: FINASTERIDE 5 MG TABLET (FP) PO SCH (09:54)
[2017-08-04] MEDS: OLANZapine 5 MG TABLET PO SCH (21:11)
[2017-08-04] MEDS: DIVALPROEX SODIUM 500 MG TABLET E.C. PO SCH (21:11)
[2017-08-04] MEDS: THIAMINE HCL 100 MG TABLET (FP) PO SCH (21:11)
[2017-08-04] MEDS: CYCLOBENZAPRINE HCL 5 MG TABLET PO SCH (21:11)
[2017-08-04] MEDS: MELATONIN 5 MG TABLETS PO SCH (21:12)
[2017-08-04] MEDS: DOCUSATE SODIUM 100 MG CAPSULE (FP) PO SCH (21:12)
[2017-08-04] MEDS: LIDOCAINE PATCH REMOVAL MC SCH (21:12)
[2017-08-04] MEDS: ATORVASTATIN CA 40 MG TABLET (FP) PO SCH (21:12)
[2017-08-05] MEDS: NAPROXEN 500 MG TABLET (FP) PO PRN ×2 (07:16→21:11)
[2017-08-05] MEDS: VENLAFAXINE HCL 75 MG E.R. CAPSULES (FP) PO SCH (07:16)
[2017-08-05] MEDS: GABAPENTIN 300 MG CAPSULE (FP) PO SCH ×3 (07:16→21:12)
[2017-08-05] MEDS: NICOTINE POLACRILEX 4 MG GUM BUC PRN ×3 (07:17→20:13)
[2017-08-05] MEDS: amLODIPine BESYLATE 5 MG TABLET (FP) PO SCH (09:46)
[2017-08-05] MEDS: buPROPion HCL 100 MG TABLET PO SCH (09:46)
[2017-08-05] MEDS: PRENATAL VITAMINS W/ FOLIC ACID TABLET (FP) PO SCH (09:46)
[2017-08-05] MEDS: PANTOPRAZOLE 40 MG TABLET (FP) PO SCH (09:46)
[2017-08-05] MEDS: LIDOCAINE 5% TOPICAL PATCH TP SCH (09:47)
[2017-08-05] MEDS: FINASTERIDE 5 MG TABLET (FP) PO SCH (09:47)
[2017-08-05] MEDS: NICOTINE 21 MG/24 HOURS TOPICAL PATCH TD SCH (09:47)
[2017-08-05] MEDS: SENNOSIDES 8.6MG TABLET (FP) PO SCH (09:48)
[2017-08-05] MEDS: OLANZapine 5 MG TABLET PO SCH (21:11)
[2017-08-05] MEDS: THIAMINE HCL 100 MG TABLET (FP) PO SCH (21:12)
[2017-08-05] MEDS: DIVALPROEX SODIUM 500 MG TABLET E.C. PO SCH (21:12)
[2017-08-05] MEDS: CYCLOBENZAPRINE HCL 5 MG TABLET PO SCH (21:12)
[2017-08-05] MEDS: MELATONIN 5 MG TABLETS PO SCH (21:12)
[2017-08-05] MEDS: LIDOCAINE PATCH REMOVAL MC SCH (21:12)
[2017-08-05] MEDS: DOCUSATE SODIUM 100 MG CAPSULE (FP) PO SCH (21:12)
[2017-08-05] MEDS: ATORVASTATIN CA 40 MG TABLET (FP) PO SCH (21:20)
[2017-08-06] MEDS: GABAPENTIN 300 MG CAPSULE (FP) PO SCH ×3 (07:32→21:05)
[2017-08-06] MEDS: VENLAFAXINE HCL 75 MG E.R. CAPSULES (FP) PO SCH (07:32)
[2017-08-06] MEDS: NICOTINE POLACRILEX 4 MG GUM BUC PRN ×3 (07:33→20:11)
[2017-08-06] MEDS: PRENATAL VITAMINS W/ FOLIC ACID TABLET (FP) PO SCH (09:57)
[2017-08-06] MEDS: amLODIPine BESYLATE 5 MG TABLET (FP) PO SCH (09:57)
[2017-08-06] MEDS: SENNOSIDES 8.6MG TABLET (FP) PO SCH (09:57)
[2017-08-06] MEDS: buPROPion HCL 100 MG TABLET PO SCH (09:57)
[2017-08-06] MEDS: PANTOPRAZOLE 40 MG TABLET (FP) PO SCH (09:57)
[2017-08-06] MEDS: FINASTERIDE 5 MG TABLET (FP) PO SCH (09:58)
[2017-08-06] MEDS: NAPROXEN 500 MG TABLET (FP) PO PRN ×2 (10:00→21:05)
[2017-08-06] MEDS: NICOTINE 21 MG/24 HOURS TOPICAL PATCH TD SCH (10:01)
[2017-08-06] MEDS: LIDOCAINE 5% TOPICAL PATCH TP SCH (10:01)
--- NOTE | 2017-08-06 15:36 | PN ---
Psychiatric Progress Note Vital Signs: Vital Signs Period Temp Pulse Resp BP Sys/[place] Pulse Ox Last 24 Hr 97.6 F 64-92 18-18 111-126/68-84 Date of Session: 08/06/17 Chief Complaint:: progress update HPI: Patient is addressing alcohol, nicotine dependence comorbid Bipolar 1 disorder, depressed. ROS: HTN, right hip arthritis, BPH ,Hypercholesterolemia, seizures. Current Medications: Active Medications Generic Name Dose Route Start Last Admin Trade Name Freq PRN Reason Stop Dose Admin Acetaminophen 650 mg 07/26/17 11:35 Tylenol - PO Q4H PRN FEVER Al Hydroxide/Mg Hydroxide 30 ml 07/26/17 11:35 Mylanta Oral Suspension - PO Q6H PRN DYSPEPSIA Amlodipine Besylate 5 mg 07/27/17 10:00 08/06/17 09:57 Norvasc - PO 5 mg DAILY MARII Administration Atorvastatin Calcium 40 mg 07/26/17 22:00 08/05/17 21:20 Lipitor - PO 40 mg HS MARII Administration Bupropion HCl 100 mg 07/28/17 10:00 08/06/17 09:57 Wellbutrin - PO 100 mg DAILY MARII Administration Cyclobenzaprine HCl 5 mg 07/26/17 22:00 08/05/17 21:12 Cyclobenzaprine Hcl PO 5 mg HS MARII Administration Divalproex Sodium 500 mg 07/27/17 22:00 08/05/17 21:12 Depakote - PO 500 mg HS MARII Administration Docusate Sodium 300 mg 07/26/17 22:00 08/05/17 21:12 Colace - PO 300 mg HS MARII Administration Eucalyptus/Menthol/Phenol/Sorbitol 1 each 07/26/17 11:35 Cepastat Lozenge - MM Q4H PRN SORE THROAT Finasteride 5 mg 07/27/17 10:00 08/06/17 09:58 Proscar - PO 5 mg DAILY MARII Administration Gabapentin 600 mg 07/26/17 14:00 08/06/17 15:12 Neurontin - PO 600 mg Q8H MARII Administration Guaifenesin 10 ml 07/26/17 11:35 Robitussin Dm - PO Q6H PRN COUGH Hydroxyzine Pamoate 50 mg 07/26/17 11:35 Vistaril - PO Q4H PRN AGITATION Ibuprofen 400 mg 07/26/17 11:35 Motrin - PO Q6H PRN Pain Level 4-6 Lidocaine 1 patch 07/26/17 14:05 08/06/17 10:01 Lidoderm Patch - TP 1 patch DAILY MARII Administration Loperamide HCl 4 mg 07/26/17 11:35 Imodium - PO Q6H PRN DIARRHEA Magnesium Citrate 300 ml 07/26/17 11:35 Citroma - PO Q48H PRN CONSTIPATION Magnesium Hydroxide 30 ml 07/26/17 11:35 Milk Of Magnesia - PO DAILY PRN CONSTIPATION Melatonin 5 mg 07/26/17 22:00 08/05/17 21:12 Melatonin PO 5 mg HS MARII Administration Miscellaneous 1 each 07/26/17 22:00 08/05/17 21:12 Lidoderm Patch Removal MC Not Given DAILY@2200 MARII Naproxen 500 mg 07/26/17 11:36 08/06/17 10:00 Naprosyn - PO 500 mg BID PRN Administration PAIN Nicotine 21 mg 07/26/17 14:05 08/06/17 10:01 Nicoderm Patch - TD 21 mg DAILY MARII Administration Nicotine Polacrilex 4 mg 08/02/17 10:37 08/06/17 11:06 Nicorette Gum - BUC 4 mg Q2H PRN Administration NICOTINE REPLACEMENT RX Olanzapine 5 mg 07/27/17 22:00 08/05/17 21:11 Zyprexa - PO 5 mg HS MARII Administration Pantoprazole Sodium 40 mg 07/27/17 10:00 08/06/17 09:57 Protonix - PO 40 mg DAILY MARII Administration Multivit/Folic Acid/Iron 1 tab 07/27/17 10:00 08/06/17 09:57 Vitamins (Sjr) - PO 1 tab DAILY MARII Administration Pseudoephedrine/Triprolidine 1 combo 07/26/17 11:35 Actifed - PO TID PRN NASAL CONGESTION Senna 2 tab 07/26/17 14:05 08/06/17 09:57 Senna - PO 2 tab DAILY MARII Administration Thiamine HCl 100 mg 07/26/17 22:00 08/05/17 21:12 Vitamin B1 - PO 100 mg HS MARII Administration Venlafaxine HCl 75 mg 07/28/17 08:00 08/06/17 07:32 Effexor Xr - PO 75 mg DAILY@0800 MARII Administration Current Side Effect: No Lab tests ordered: Yes (depakote blood level in am) Lab tests reviewed: Yes Provider note:: Patient was seen today, reports he feels well and no side- effects reported, no complaints, medications well tolerated, patient was informed that blood test for depakote level ordered in am. continue the same management. Total face to face time:: 15 Mental Status Exam - Mental Status Exam Alert and Oriented to: Time, Place, Person Cognitive Function: Good Patient Appearance: Well Groomed Mood: Anxious Affect: Appropriate, Mood Congruent Patient Behavior: Appropriate, Cooperative Speech Pattern: Clear, Appropriate Voice Loudness: Normal Thought Process: Goal Oriented Hallucinations: Denies Suicidal Ideation: Denies Homicidal Ideation: Denies Insight/Judgement: Good Sleep: Well Appetite: Good Muscle strength/Tone: Normal Gait/Station: Normal Psychiatric Treatment Plan - Problem List (1) Alcohol dependence Current Visit: Yes (2) Nicotine dependence Current Visit: Yes (3) Bipolar I, most recent episode depressed, severe Current Visit: Yes (4) BPH (benign prostatic hyperplasia) Current Visit: No (5) GERD (gastroesophageal reflux disease) Current Visit: No Qualifiers:
[2017-08-06] MEDS: OLANZapine 5 MG TABLET PO SCH (21:05)
[2017-08-06] MEDS: DOCUSATE SODIUM 100 MG CAPSULE (FP) PO SCH (21:05)
[2017-08-06] MEDS: THIAMINE HCL 100 MG TABLET (FP) PO SCH (21:05)
[2017-08-06] MEDS: DIVALPROEX SODIUM 500 MG TABLET E.C. PO SCH (21:05)
[2017-08-06] MEDS: CYCLOBENZAPRINE HCL 5 MG TABLET PO SCH (21:05)
[2017-08-06] MEDS: MELATONIN 5 MG TABLETS PO SCH (21:06)
[2017-08-06] MEDS: ATORVASTATIN CA 40 MG TABLET (FP) PO SCH (21:07)
[2017-08-06] MEDS: LIDOCAINE PATCH REMOVAL MC SCH (21:07)
[2017-08-07] MEDS: GABAPENTIN 300 MG CAPSULE (FP) PO SCH ×3 (06:55→21:07)
[2017-08-07] MEDS: NICOTINE POLACRILEX 4 MG GUM BUC PRN ×5 (06:56→21:10)
[2017-08-07] MEDS: VENLAFAXINE HCL 75 MG E.R. CAPSULES (FP) PO SCH (07:06)
[2017-08-07] MEDS: PANTOPRAZOLE 40 MG TABLET (FP) PO SCH (09:45)
[2017-08-07] MEDS: SENNOSIDES 8.6MG TABLET (FP) PO SCH (09:45)
[2017-08-07] MEDS: buPROPion HCL 100 MG TABLET PO SCH (09:45)
[2017-08-07] MEDS: PRENATAL VITAMINS W/ FOLIC ACID TABLET (FP) PO SCH (09:45)
[2017-08-07] MEDS: amLODIPine BESYLATE 5 MG TABLET (FP) PO SCH (09:45)
[2017-08-07] MEDS: LIDOCAINE 5% TOPICAL PATCH TP SCH (09:46)
[2017-08-07] MEDS: FINASTERIDE 5 MG TABLET (FP) PO SCH (09:46)
[2017-08-07] MEDS: NICOTINE 21 MG/24 HOURS TOPICAL PATCH TD SCH (09:46)
[2017-08-07] MEDS: NAPROXEN 500 MG TABLET (FP) PO PRN ×2 (11:16→21:09)
[2017-08-07] MEDS: MELATONIN 5 MG TABLETS PO SCH (21:07)
[2017-08-07] MEDS: DOCUSATE SODIUM 100 MG CAPSULE (FP) PO SCH (21:07)
[2017-08-07] MEDS: CYCLOBENZAPRINE HCL 5 MG TABLET PO SCH (21:07)
[2017-08-07] MEDS: THIAMINE HCL 100 MG TABLET (FP) PO SCH (21:07)
[2017-08-07] MEDS: DIVALPROEX SODIUM 500 MG TABLET E.C. PO SCH (21:07)
[2017-08-07] MEDS: OLANZapine 5 MG TABLET PO SCH (21:07)
[2017-08-07] MEDS: ATORVASTATIN CA 40 MG TABLET (FP) PO SCH (21:08)
[2017-08-07] MEDS: LIDOCAINE PATCH REMOVAL MC SCH (21:15)
[2017-08-08] MEDS: GABAPENTIN 300 MG CAPSULE (FP) PO SCH ×3 (08:04→21:10)
[2017-08-08] MEDS: VENLAFAXINE HCL 75 MG E.R. CAPSULES (FP) PO SCH (08:04)
[2017-08-08] MEDS: amLODIPine BESYLATE 5 MG TABLET (FP) PO SCH (09:55)
[2017-08-08] MEDS: PANTOPRAZOLE 40 MG TABLET (FP) PO SCH (09:55)
[2017-08-08] MEDS: PRENATAL VITAMINS W/ FOLIC ACID TABLET (FP) PO SCH (09:56)
[2017-08-08] MEDS: buPROPion HCL 100 MG TABLET PO SCH (09:56)
[2017-08-08] MEDS: SENNOSIDES 8.6MG TABLET (FP) PO SCH (09:56)
[2017-08-08] MEDS: LIDOCAINE 5% TOPICAL PATCH TP SCH (09:56)
[2017-08-08] MEDS: NICOTINE 21 MG/24 HOURS TOPICAL PATCH TD SCH (09:57)
[2017-08-08] MEDS: NAPROXEN 500 MG TABLET (FP) PO PRN ×2 (09:58→21:13)
[2017-08-08] MEDS: FINASTERIDE 5 MG TABLET (FP) PO SCH (10:48)
[2017-08-08] MEDS: NICOTINE POLACRILEX 4 MG GUM BUC PRN ×4 (13:02→21:13)
--- NOTE | 2017-08-08 14:59 | PN ---
Psychiatric Progress Note Vital Signs: Vital Signs Period Temp Pulse Resp BP Sys/[place] Pulse Ox Last 24 Hr 97.5 F 75 18-18 138/84 Date of Session: 08/08/17 Chief Complaint:: Discharge Note HPI: Patient addressing Alcohol Dependence comorbid with Nicotine Dependence and Bipolar Disorder ROS: BPH, GERD, HTN Current Medications: Active Medications Generic Name Dose Route Start Last Admin Trade Name Freq PRN Reason Stop Dose Admin Acetaminophen 650 mg 07/26/17 11:35 Tylenol - PO Q4H PRN FEVER Al Hydroxide/Mg Hydroxide 30 ml 07/26/17 11:35 Mylanta Oral Suspension - PO Q6H PRN DYSPEPSIA Amlodipine Besylate 5 mg 07/27/17 10:00 08/08/17 09:55 Norvasc - PO 5 mg DAILY MARII Administration Atorvastatin Calcium 40 mg 07/26/17 22:00 08/07/17 21:08 Lipitor - PO 40 mg HS MARII Administration Bupropion HCl 100 mg 07/28/17 10:00 08/08/17 09:56 Wellbutrin - PO 100 mg DAILY MARII Administration Cyclobenzaprine HCl 5 mg 07/26/17 22:00 08/07/17 21:07 Cyclobenzaprine Hcl PO 5 mg HS MARII Administration Divalproex Sodium 500 mg 07/27/17 22:00 08/07/17 21:07 Depakote - PO 500 mg HS MARII Administration Docusate Sodium 300 mg 07/26/17 22:00 08/07/17 21:07 Colace - PO 300 mg HS MARII Administration Eucalyptus/Menthol/Phenol/Sorbitol 1 each 07/26/17 11:35 Cepastat Lozenge - MM Q4H PRN SORE THROAT Finasteride 5 mg 07/27/17 10:00 08/08/17 10:48 Proscar - PO 5 mg DAILY MARII Administration Gabapentin 600 mg 07/26/17 14:00 08/08/17 14:20 Neurontin - PO 600 mg Q8H MARII Administration Guaifenesin 10 ml 07/26/17 11:35 Robitussin Dm - PO Q6H PRN COUGH Hydroxyzine Pamoate 50 mg 07/26/17 11:35 Vistaril - PO Q4H PRN AGITATION Ibuprofen 400 mg 07/26/17 11:35 Motrin - PO Q6H PRN Pain Level 4-6 Lidocaine 1 patch 07/26/17 14:05 08/08/17 09:56 Lidoderm Patch - TP 1 patch DAILY MARII Administration Loperamide HCl 4 mg 07/26/17 11:35 Imodium - PO Q6H PRN DIARRHEA Magnesium Citrate 300 ml 07/26/17 11:35 Citroma - PO Q48H PRN CONSTIPATION Magnesium Hydroxide 30 ml 07/26/17 11:35 Milk Of Magnesia - PO DAILY PRN CONSTIPATION Melatonin 5 mg 07/26/17 22:00 08/07/17 21:07 Melatonin PO 5 mg HS MARII Administration Miscellaneous 1 each 07/26/17 22:00 08/07/17 21:15 Lidoderm Patch Removal MC Not Given DAILY@2200 MARII Naproxen 500 mg 07/26/17 11:36 08/08/17 09:58 Naprosyn - PO 500 mg BID PRN Administration PAIN Nicotine 21 mg 07/26/17 14:05 08/08/17 09:57 Nicoderm Patch - TD 21 mg DAILY MARII Administration Nicotine Polacrilex 4 mg 08/02/17 10:37 08/08/17 13:02 Nicorette Gum - BUC 4 mg Q2H PRN Administration NICOTINE REPLACEMENT RX Olanzapine 5 mg 07/27/17 22:00 08/07/17 21:07 Zyprexa - PO 5 mg HS MARII Administration Pantoprazole Sodium 40 mg 07/27/17 10:00 08/08/17 09:55 Protonix - PO 40 mg DAILY MARII Administration Multivit/Folic Acid/Iron 1 tab 07/27/17 10:00 08/08/17 09:56 Vitamins (Sjr) - PO 1 tab DAILY MARII Administration Pseudoephedrine/Triprolidine 1 combo 07/26/17 11:35 Actifed - PO TID PRN NASAL CONGESTION Senna 2 tab 07/26/17 14:05 08/08/17 09:56 Senna - PO 2 tab DAILY MARII Administration Thiamine HCl 100 mg 07/26/17 22:00 08/07/17 21:07 Vitamin B1 - PO 100 mg HS MARII Administration Venlafaxine HCl 75 mg 07/28/17 08:00 08/08/17 08:04 Effexor Xr - PO Not Given DAILY@0800 [facility] Current Side Effect: No Lab tests ordered: Yes Lab tests reviewed: Yes Provider note:: Patient will complete this program on 08/09/17. He has met his treatment goals and will continue to address his issues in outpatient treatment at at [address] Told poem writer that from his participation in this program, he has learned the importance of making meetins and have a sponsor. He responded well to Zyprexa 5 mg po HS, Depakote 500 mg po HS and Effexor 75 mg po daily. Scripts for these medications were electronically to [facility] at [address] [place] [phone]. He is stable for discharge on 08/09/17 Total face to face time:: 35 Psychiatric Treatment Plan - Problem List (1) Alcohol dependence Current Visit: Yes (2) Nicotine dependence Current Visit: Yes (3) Bipolar I, most recent episode depressed, severe Current Visit: Yes (4) Alcohol related seizure Current Visit: No (5) BPH (benign prostatic hyperplasia) Current Visit: No (6) GERD (gastroesophageal reflux disease) Current Visit: No Qualifiers: (7) Hypercholesteremia Current Visit: No (8) Hypertension Current Visit: No Initial treatment plan: Patient will be discharged tomorrow and referred to [facility] in [place] for outpatient treatment
[2017-08-08] MEDS: DIVALPROEX SODIUM 500 MG TABLET E.C. PO SCH (21:10)
[2017-08-08] MEDS: DOCUSATE SODIUM 100 MG CAPSULE (FP) PO SCH (21:11)
[2017-08-08] MEDS: CYCLOBENZAPRINE HCL 5 MG TABLET PO SCH (21:11)
[2017-08-08] MEDS: ATORVASTATIN CA 40 MG TABLET (FP) PO SCH (21:11)
[2017-08-08] MEDS: MELATONIN 5 MG TABLETS PO SCH (21:11)
[2017-08-08] MEDS: THIAMINE HCL 100 MG TABLET (FP) PO SCH (21:12)
[2017-08-08] MEDS: OLANZapine 5 MG TABLET PO SCH (21:12)
[2017-08-08] MEDS: LIDOCAINE PATCH REMOVAL MC SCH (21:13)
[2017-08-09] MEDS: GABAPENTIN 300 MG CAPSULE (FP) PO SCH (06:10)
[2017-08-09] MEDS: NICOTINE POLACRILEX 4 MG GUM BUC PRN ×2 (06:13→10:08)
[2017-08-09 07:01] VITALS: TEMP 98.6
[2017-08-09] MEDS: VENLAFAXINE HCL 75 MG E.R. CAPSULES (FP) PO SCH (07:14)
--- NOTE | 2017-08-09 08:07 | PN ---
Psychiatric Progress Note Vital Signs: Vital Signs Period Temp Pulse Resp BP Sys/[place] Pulse Ox Last 24 Hr 97.5 F-98.6 F 75-75 18-20 114-138/66-84 Date of Session: 08/09/17 Chief Complaint:: Discharge Note HPI: Patient addressing Alcohol Dependence comorbid with Nicotine Dependence and Bipolar Disorder ROS: BPH, GERD, HTN Current Medications: Active Medications Generic Name Dose Route Start Last Admin Trade Name Freq PRN Reason Stop Dose Admin Acetaminophen 650 mg 07/26/17 11:35 Tylenol - PO Q4H PRN FEVER Al Hydroxide/Mg Hydroxide 30 ml 07/26/17 11:35 Mylanta Oral Suspension - PO Q6H PRN DYSPEPSIA Amlodipine Besylate 5 mg 07/27/17 10:00 08/08/17 09:55 Norvasc - PO 5 mg DAILY MARII Administration Atorvastatin Calcium 40 mg 07/26/17 22:00 08/08/17 21:11 Lipitor - PO 40 mg HS MARII Administration Bupropion HCl 100 mg 07/28/17 10:00 08/08/17 09:56 Wellbutrin - PO 100 mg DAILY MARII Administration Cyclobenzaprine HCl 5 mg 07/26/17 22:00 08/08/17 21:11 Cyclobenzaprine Hcl PO 5 mg HS MARII Administration Divalproex Sodium 500 mg 07/27/17 22:00 08/08/17 21:10 Depakote - PO 500 mg HS MARII Administration Docusate Sodium 300 mg 07/26/17 22:00 08/08/17 21:11 Colace - PO 300 mg HS MARII Administration Eucalyptus/Menthol/Phenol/Sorbitol 1 each 07/26/17 11:35 Cepastat Lozenge - MM Q4H PRN SORE THROAT Finasteride 5 mg 07/27/17 10:00 08/08/17 10:48 Proscar - PO 5 mg DAILY MARII Administration Gabapentin 600 mg 07/26/17 14:00 08/09/17 06:10 Neurontin - PO 600 mg Q8H MARII Administration Guaifenesin 10 ml 07/26/17 11:35 Robitussin Dm - PO Q6H PRN COUGH Hydroxyzine Pamoate 50 mg 07/26/17 11:35 Vistaril - PO Q4H PRN AGITATION Ibuprofen 400 mg 07/26/17 11:35 Motrin - PO Q6H PRN Pain Level 4-6 Lidocaine 1 patch 07/26/17 14:05 08/08/17 09:56 Lidoderm Patch - TP 1 patch DAILY MARII Administration Loperamide HCl 4 mg 07/26/17 11:35 Imodium - PO Q6H PRN DIARRHEA Magnesium Citrate 300 ml 07/26/17 11:35 Citroma - PO Q48H PRN CONSTIPATION Magnesium Hydroxide 30 ml 07/26/17 11:35 Milk Of Magnesia - PO DAILY PRN CONSTIPATION Melatonin 5 mg 07/26/17 22:00 08/08/17 21:11 Melatonin PO 5 mg HS MARII Administration Miscellaneous 1 each 07/26/17 22:00 08/08/17 21:13 Lidoderm Patch Removal MC 1 each DAILY@2199 MARII Administration Naproxen 500 mg 07/26/17 11:36 08/08/17 21:13 Naprosyn - PO 500 mg BID PRN Administration PAIN Nicotine 21 mg 07/26/17 14:05 08/08/17 09:57 Nicoderm Patch - TD 21 mg DAILY MARII Administration Nicotine Polacrilex 4 mg 08/02/17 10:37 08/09/17 06:13 Nicorette Gum - BUC 4 mg Q2H PRN Administration NICOTINE REPLACEMENT RX Olanzapine 5 mg 07/27/17 22:00 08/08/17 21:12 Zyprexa - PO 5 mg HS MARII Administration Pantoprazole Sodium 40 mg 07/27/17 10:00 08/08/17 09:55 Protonix - PO 40 mg DAILY MARII Administration Multivit/Folic Acid/Iron 1 tab 07/27/17 10:00 08/08/17 09:56 Vitamins (Sjr) - PO 1 tab DAILY MARII Administration Pseudoephedrine/Triprolidine 1 combo 07/26/17 11:35 Actifed - PO TID PRN NASAL CONGESTION Senna 2 tab 07/26/17 14:05 08/08/17 09:56 Senna - PO 2 tab DAILY MARII Administration Thiamine HCl 100 mg 07/26/17 22:00 08/08/17 21:12 Vitamin B1 - PO 100 mg HS MARII Administration Venlafaxine HCl 75 mg 07/28/17 08:00 08/09/17 07:14 Effexor Xr - PO 75 mg DAILY@0800 MARII Administration Current Side Effect: No Lab tests ordered: Yes Lab tests reviewed: Yes Provider note:: Patient has completed this program today. He has met his treatment goals and will continue to address his issues in outpatient treatment at at [address] Told insurance underwriter that from his participation in this program, he has learned the importance of making meetins and have a sponsor. He responded well to Zyprexa 5 mg po HS, Depakote 500 mg po HS and Effexor 75 mg po daily. Scripts for these medications were electronically to [facility] at [address] [place] [phone]. He is stable for discharge today Total face to face time:: 35 Mental Status Exam - Mental Status Exam Alert and Oriented to: Time, Place, Person Cognitive Function: Fair Patient Appearance: Well Groomed Mood: Hopeful, Euthymic Affect: Appropriate Patient Behavior: Cooperative Speech Pattern: Clear Voice Loudness: Normal, Limited Variation Thought Process: Goal Oriented Thought Disorder: Not Present Hallucinations: Denies Suicidal Ideation: Denies Homicidal Ideation: Denies Insight/Judgement: Fair Sleep: Fair Appetite: Good Muscle strength/Tone: Normal Gait/Station: Normal Psychiatric Treatment Plan - Problem List (1) Alcohol dependence Current Visit: Yes (2) Nicotine dependence Current Visit: Yes (3) Bipolar I, most recent episode depressed, severe Current Visit: Yes (4) Alcohol related seizure Current Visit: No (5) BPH (benign prostatic hyperplasia) Current Visit: No (6) GERD (gastroesophageal reflux disease) Current Visit: No Qualifiers: (7) Hypercholesteremia Current Visit: No (8) Hypertension Current Visit: No Initial treatment plan: Patient is discharged today and referred to [facility] in [place] for outpatient treatment
[2017-08-09] MEDS: buPROPion HCL 100 MG TABLET PO SCH (10:03)
[2017-08-09] MEDS: SENNOSIDES 8.6MG TABLET (FP) PO SCH (10:03)
[2017-08-09] MEDS: PANTOPRAZOLE 40 MG TABLET (FP) PO SCH (10:03)
[2017-08-09] MEDS: FINASTERIDE 5 MG TABLET (FP) PO SCH (10:04)
[2017-08-09] MEDS: NICOTINE 21 MG/24 HOURS TOPICAL PATCH TD SCH (10:04)
[2017-08-09] MEDS: amLODIPine BESYLATE 5 MG TABLET (FP) PO SCH (10:04)
[2017-08-09] MEDS: PRENATAL VITAMINS W/ FOLIC ACID TABLET (FP) PO SCH (10:04)
[2017-08-09] MEDS: LIDOCAINE 5% TOPICAL PATCH TP SCH (10:04)
[2017-08-09] MEDS: NAPROXEN 500 MG TABLET (FP) PO PRN (10:05)
[2017-08-09 13:18] VITALS: BP 119/77; PULSE 92
== END 2017-08-09 13:00 | disposition home or self-care (01) | DRG 772 ==
LOC: YASAS 08:35 → Y5N 12:58
PROVIDERS: ADMIT Psychiatry & Neurology Psychiatry; ATTEND Psychiatry & Neurology Psychiatry
PROC: HZ42ZZZ Group Counseling for Substance Abuse Treatment, Cognitive-Behavioral (ICD-10-PCS; principal; 2017-07-26)
DX: F10.20 Alcohol dependence, uncomplicated (principal); F17.210 Nicotine dependence, cigarettes, uncomplicated; F31.4 Bipolar disorder, current episode depressed, severe, without psychotic features; I10 Essential (primary) hypertension; K21.9 Gastro-esophageal reflux disease without esophagitis; E78.00 Pure hypercholesterolemia, unspecified; N40.0 Benign prostatic hyperplasia without lower urinary tract symptoms; Z86.69 Personal history of other diseases of the nervous system and sense organs
CPT/HCPCS: 36415; 80164; 81003

== ENCOUNTER 2019-11-23 15:50 | Inpatient (IN) | payer OTHER ==
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
[2019-11-23 16:49] VITALS: BMI 25.5
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
[2019-11-23] MEDS ORDERED: MAGNESIUM CITRATE 300 ML BOTTLE PO PRN (18:53)
[2019-11-23] MEDS ORDERED: BISMUTH SUBSALICYLATE 524 MG/30 ML UD PO PRN (18:53)
[2019-11-23] MEDS ORDERED: ACETAMINOPHEN 325 MG TABLET (FP) PO PRN ×2 (18:53)
[2019-11-23] MEDS ORDERED: IBUPROFEN 400 MG TABLET (FP) PO PRN (18:53)
[2019-11-23] MEDS ORDERED: MAG HYDROX/AL HYDROX/SIMETH 30 ML UNIT-DOSE CUP PO PRN (18:53)
[2019-11-23] MEDS ORDERED: MAGNESIUM HYDROX 2400MG/30ML ORAL SUSPENSION 30 ML CUP PO PRN (18:53)
[2019-11-23] MEDS ORDERED: MENTHOL/PHENOL 1 EACH UD MM PRN (18:53)
[2019-11-23] MEDS ORDERED: chlordiazePOXIDE HCL 10 MG CAPSULE PO PRN (18:57)
[2019-11-23] MEDS ORDERED: ONDANSETRON *ODT* 4 MG TABLET SL ONE (19:15)
[2019-11-23] MEDS ORDERED: TUBERCULIN PPD 5 TU/0.1ML VIAL ID ONE (20:14)
[2019-11-23] MEDS: NICOTINE POLACRILEX 2 MG GUM BUC PRN (21:03)
[2019-11-23] MEDS: THIAMINE HCL 100 MG TABLET (FP) PO SCH (21:03)
[2019-11-23] MEDS: MELATONIN 5 MG TABLETS PO SCH (21:03)
[2019-11-23] MEDS: chlordiazePOXIDE HCL 25 MG CAPSULE PO SCH (21:03)
[2019-11-23] MEDS: GABAPENTIN 300 MG CAPSULE PO SCH (21:03)
[2019-11-23] MEDS: hydrOXYzine PAMOATE 25 MG CAPSULE (FP) PO SCH (21:03)
[2019-11-24] MEDS: GABAPENTIN 300 MG CAPSULE PO SCH ×3 (07:40→21:42)
[2019-11-24] MEDS: hydrOXYzine PAMOATE 25 MG CAPSULE (FP) PO SCH ×5 (07:41→21:42)
[2019-11-24] MEDS: chlordiazePOXIDE HCL 25 MG CAPSULE PO SCH ×3 (07:41→21:42)
[2019-11-24 10:19] LABS: HEMATOCRIT 40.5 % (35.4-49); HEMOGLOBIN 13.5 GM/dL (11.7-16.9); MCH 30.8 pg (25.7-33.7); MCHC 33.4 g/dl (32.0-35.9); MEAN CELL VOLUME 92.3 fl (80-96); MEAN PLT VOLUME 8.5 fl (7.5-11.1); PLATELET COUNT 187 K/MM3 (134-434); RBC 4.39 M/mm3 (4.00-5.60); RDW 14.2 % (11.9-15.9); WHITE BLOOD COUNT 6.5 K/mm3 (4.0-10.0)
[2019-11-24 10:38] LABS: ALBUMIN 2.8 g/dl (3.4-5.0); BLOOD UREA NITROGEN 17.6 mg/dL (7-18); CALCIUM 8.2 mg/dL (8.5-10.1); POTASSIUM 4.2 mmol/L (3.5-5.1)
[2019-11-24 10:41] LABS: BILIRUBIN,TOTAL 0.8 mg/dL (0.2-1); CREATININE 0.8 mg/dL (0.55-1.3); TOT PROT 6.3 g/dl (6.4-8.2)
[2019-11-24] MEDS: NICOTINE 7 MG/24 HOURS TOPICAL PATCH TD SCH (10:56)
[2019-11-24] MEDS: PRENATAL VITAMINS W/ FOLIC ACID TABLET (FP) PO SCH (10:57)
[2019-11-24] MEDS: FINASTERIDE 5 MG TABLET (FP) PO SCH (10:57)
[2019-11-24] MEDS: amLODIPine BESYLATE 5 MG TABLET (FP) PO SCH (10:57)
--- NOTE | 2019-11-24 11:19 | EKG ---
Test Reason : Blood Pressure : / mmHG Vent. Rate : 093 BPM Atrial Rate : 093 BPM P-R Int : 170 ms QRS Dur : 106 ms QT Int : 370 ms P-R-T Axes : 061 069 023 degrees QTc Int : 460 ms NORMAL SINUS RHYTHM NONSPECIFIC ST ABNORMALITY WHEN COMPARED WITH ECG OF 21-JUL-2017 20:50, NO SIGNIFICANT CHANGE WAS FOUND Confirmed by JESSICA GOMEZ MD ([id number]) on 11/24/2019 11:19:12 AM Referred By: Confirmed By:JESSICA GOMEZ MD
--- NOTE | 2019-11-24 14:44 | PN ---
S CIWA - CIWA Score Nausea/Vomitin-No Nausea/No Vomiting Muscle Tremors: 4-Moderate,w/Arms Extend Anxiety: 4-Mod. Anxious/Guarded Agitation: 3 Paroxysmal Sweats: 2 Orientation: 0-Oriented Tacttile Disturbances: 0-None Auditory Disturbances: 0-None Visual Disturbances: 0-None Headache: 0-None Present CIWA-Ar Total Score: 13 BHS Progress Note (SOAP) Subjective: Pt is a 54 y/o male admitted to detox for alcohol withdrawal sx. On Librium taper. c/o Skaes anxiety hot/cold feelings sweats intermittent sleep Objective: 11/24/19 14:41 Vital Signs - 24 hr 11/23/19 11/23/19 11/23/19 16:47 18:51 19:50 Temperature 97.8 F 97.8 F 98.7 F Pulse Rate 105 H 105 H 97 H Respiratory 16 16 20 Rate Blood Pressure 110/65 110/65 122/67 O2 Sat by Pulse Oximetry (%) 11/23/19 11/23/19 11/23/19 20:56 21:19 23:18 Temperature 99.7 F H 98.7 F 97.3 F L Pulse Rate 91 H 97 H Respiratory 18 20 Rate Blood Pressure 117/67 122/67 O2 Sat by Pulse 95 Oximetry (%) 11/24/19 07:04 Temperature 97.1 F L Pulse Rate 62 Respiratory 18 Rate Blood Pressure 109/73 O2 Sat by Pulse 97 Oximetry (%) Laboratory Tests 11/24/19 11/24/19 11/24/19 08:15 08:15 08:15 WBC 6.5 RBC 4.39 Hgb 13.5 Hct 40.5 MCV 92.3 MCH 30.8 MCHC 33.4 RDW 14.2 Plt Count 187 D MPV 8.5 Sodium 140 Potassium 4.2 Chloride 112 H Carbon Dioxide 21 Anion Gap 7 L BUN 17.6 Creatinine 0.8 Est GFR (CKD-EPI)AfAm 118.20 Est GFR (CKD-EPI)NonAf 101.99 Random Glucose 100 Calcium 8.2 L Total Bilirubin 0.8 AST 21 ALT 30 Alkaline Phosphatase 73 Total Protein 6.3 L Albumin 2.8 L Syphilis Serology Non-reactive covid-19 result pending alert o x 3 nad pt seen laying in bed but responded and communicated needs coherently. Assessment: 11/24/19 14:43 withdrawal sx Plan: cont detox increase po fluids maintain safety
[2019-11-24] MEDS: NICOTINE POLACRILEX 2 MG GUM BUC PRN ×3 (15:31→21:44)
[2019-11-24] MEDS: THIAMINE HCL 100 MG TABLET (FP) PO SCH (21:42)
[2019-11-24] MEDS: MELATONIN 5 MG TABLETS PO SCH (21:42)
[2019-11-25] MEDS: GABAPENTIN 300 MG CAPSULE PO SCH ×3 (06:17→22:32)
[2019-11-25] MEDS: chlordiazePOXIDE 5 MG CAPSULE PO SCH ×3 (06:18→22:32)
[2019-11-25] MEDS: hydrOXYzine PAMOATE 25 MG CAPSULE (FP) PO SCH ×5 (06:18→22:32)
[2019-11-25] MEDS: NICOTINE POLACRILEX 2 MG GUM BUC PRN ×5 (07:08→23:04)
[2019-11-25] MEDS ORDERED: MASKS NR ONE (09:13)
[2019-11-25] MEDS: PRENATAL VITAMINS W/ FOLIC ACID TABLET (FP) PO SCH (09:53)
[2019-11-25] MEDS: amLODIPine BESYLATE 5 MG TABLET (FP) PO SCH (09:53)
[2019-11-25] MEDS: FINASTERIDE 5 MG TABLET (FP) PO SCH (09:54)
[2019-11-25] MEDS: NICOTINE 7 MG/24 HOURS TOPICAL PATCH TD SCH (09:54)
[2019-11-25] MEDS: METHOCARBAMOL 500 MG TABLET PO PRN (13:14)
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
--- NOTE | 2019-11-25 18:04 | PN ---
[facility] CIWA - CIWA Score Nausea/Vomitin-No Nausea/No Vomiting Muscle Tremors: None Anxiety: 4-Mod. Anxious/Guarded Agitation: 3 Paroxysmal Sweats: 1-Minimal Palms Moist Orientation: 0-Oriented Tacttile Disturbances: 0-None Auditory Disturbances: 1-Very Mild Visual Disturbances: 2-Mild Sensitivity Headache: 0-None Present CIWA-Ar Total Score: 11 S Progress Note (SOAP) Subjective: Anxious, Sweating, Interrupted Sleep. Objective: Patient A & O X 3, Observed Ambulating on Detox Unit Unassisted. In No Acute Distress. 11/25/19 18:01 Vital Signs Temperature 97.7 F 11/25/19 13:10 Pulse Rate 84 11/25/19 13:10 Respiratory Rate 20 11/25/19 13:10 Blood Pressure 126/80 11/25/19 13:10 O2 Sat by Pulse Oximetry (%) 97 11/25/19 09:22 Laboratory Tests 11/23/19 11/24/19 11/24/19 19:15 08:15 08:15 WBC 6.5 RBC 4.39 Hgb 13.5 Hct 40.5 MCV 92.3 MCH 30.8 MCHC 33.4 RDW 14.2 Plt Count 187 D MPV 8.5 Sodium Potassium Chloride Carbon Dioxide Anion Gap BUN Creatinine Est GFR (CKD-EPI)AfAm Est GFR (CKD-EPI)NonAf Random Glucose Calcium Total Bilirubin AST ALT Alkaline Phosphatase Total Protein Albumin Syphilis Serology Non-reactive COVID-19 ([facility]COL) Not detected 11/24/19 08:15 WBC RBC Hgb Hct MCV MCH MCHC RDW Plt Count MPV Sodium 140 Potassium 4.2 Chloride 112 H Carbon Dioxide 21 Anion Gap 7 L BUN 17.6 Creatinine 0.8 Est GFR (CKD-EPI)AfAm 118.20 Est GFR (CKD-EPI)NonAf 101.99 Random Glucose 100 Calcium 8.2 L Total Bilirubin 0.8 AST 21 ALT 30 Alkaline Phosphatase 73 Total Protein 6.3 L Albumin 2.8 L Syphilis Serology COVID-19 ([facility]) Lab Results noted. Assessment: 11/25/19 18:03 WITHDRAWAL SYMPTOMS. Plan: Continue Detox.
[2019-11-25] MEDS: MELATONIN 5 MG TABLETS PO SCH (22:31)
[2019-11-25] MEDS: MIRTAZAPINE 15 MG TABLET (FP) PO SCH (22:32)
[2019-11-25] MEDS: THIAMINE HCL 100 MG TABLET (FP) PO SCH (22:34)
[2019-11-26] MEDS ORDERED: chlordiazePOXIDE HCL 10 MG CAPSULE PO PRN
[2019-11-26] MEDS: GABAPENTIN 300 MG CAPSULE PO SCH ×3 (06:16→22:14)
[2019-11-26] MEDS: hydrOXYzine PAMOATE 25 MG CAPSULE (FP) PO SCH ×5 (06:17→22:15)
[2019-11-26] MEDS: chlordiazePOXIDE HCL 10 MG CAPSULE PO SCH ×3 (06:17→22:14)
[2019-11-26] MEDS: NICOTINE POLACRILEX 2 MG GUM BUC PRN ×4 (06:19→20:17)
[2019-11-26] MEDS: PRENATAL VITAMINS W/ FOLIC ACID TABLET (FP) PO SCH (10:05)
[2019-11-26] MEDS: amLODIPine BESYLATE 5 MG TABLET (FP) PO SCH (10:05)
[2019-11-26] MEDS: FINASTERIDE 5 MG TABLET (FP) PO SCH (10:05)
[2019-11-26] MEDS: NICOTINE 7 MG/24 HOURS TOPICAL PATCH TD SCH (10:06)
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
[2019-11-26] MEDS: MELATONIN 5 MG TABLETS PO SCH (22:14)
[2019-11-26] MEDS: THIAMINE HCL 100 MG TABLET (FP) PO SCH (22:15)
[2019-11-26] MEDS: MIRTAZAPINE 15 MG TABLET (FP) PO SCH (22:15)
[2019-11-26] MEDS: BACITRACIN 0.9 GM PACKET TP SCH (22:15)
[2019-11-26] MEDS: CALCIUM CARBONATE 650 MG TABLET PO SCH (22:15)
[2019-11-27] MEDS ORDERED: chlordiazePOXIDE HCL 10 MG CAPSULE PO ONE (05:00)
[2019-11-27] MEDS: GABAPENTIN 300 MG CAPSULE PO SCH ×2 (06:06→13:37)
[2019-11-27] MEDS: hydrOXYzine PAMOATE 25 MG CAPSULE (FP) PO SCH ×3 (06:07→13:37)
[2019-11-27] MEDS: NICOTINE POLACRILEX 2 MG GUM BUC PRN ×2 (06:19→08:55)
--- NOTE | 2019-11-27 08:44 | DS ---
[facility] Detox Discharge Summary Admission Date: 11/23/19 Discharge Date: 11/27/19 - History Present History: Alcohol Dependence Pertinent Past History: HTN BPH Alcohol related Seizures Hypercholesterolemia Arthritis of Right Hip GERD Constipation Hx Depression - Physical Exam Results Vital Signs: Vital Signs Temperature 97.5 F L 11/27/19 06:25 Pulse Rate 62 11/27/19 06:25 Respiratory Rate 18 11/27/19 06:25 Blood Pressure 111/72 11/27/19 06:25 O2 Sat by Pulse Oximetry (%) 97 11/27/19 06:25 Alert o x 3 nad oob ambulating with steady gait cardiac:s1 s2, rrr Lungs:ctab abdomen:soft,+bs,nt,nd extremities:no edema, small old scab on right knee. Pertinent Admission Physical Exam Findings: Laboratory Tests 11/23/19 11/24/19 11/24/19 19:15 08:15 08:15 WBC 6.5 RBC 4.39 Hgb 13.5 Hct 40.5 MCV 92.3 MCH 30.8 MCHC 33.4 RDW 14.2 Plt Count 187 D MPV 8.5 Sodium Potassium Chloride Carbon Dioxide Anion Gap BUN Creatinine Est GFR (CKD-EPI)AfAm Est GFR (CKD-EPI)NonAf Random Glucose Calcium Total Bilirubin AST ALT Alkaline Phosphatase Total Protein Albumin Syphilis Serology Non-reactive COVID-19 ([facility]) Not detected 11/24/19 08:15 WBC RBC Hgb Hct MCV MCH MCHC RDW Plt Count MPV Sodium 140 Potassium 4.2 Chloride 112 H Carbon Dioxide 21 Anion Gap 7 L BUN 17.6 Creatinine 0.8 Est GFR (CKD-EPI)AfAm 118.20 Est GFR (CKD-EPI)NonAf 101.99 Random Glucose 100 Calcium 8.2 L Total Bilirubin 0.8 AST 21 ALT 30 Alkaline Phosphatase 73 Total Protein 6.3 L Albumin 2.8 L Syphilis Serology COVID-19 ([facility]) - Treatment Hospital Course: Detox Protocol Followed, Detoxed Safely, Responded well, Discharged Condition Good, Rehab Referral Accepted Patient has Accepted a Rehab Referral to: [facility] - Medication Discharge Medications: Ambulatory Orders Gabapentin [Neurontin -] 600 mg PO Q8H 07/26/17 Bupropion HCl [Wellbutrin -] 100 mg PO DAILY #30 tablet 08/06/17 Divalproex [Depakote -] 500 mg PO HS #60 tablet.ec 08/06/17 Olanzapine [Zyprexa -] 5 mg PO HS #30 tablet 08/06/17 Venlafaxine HCl ER [Effexor Xr -] 75 mg PO DAILY@0800 #30 cap.er.24h 08/06/17 Amlodipine Besylate [Norvasc -] 5 mg PO DAILY #30 tablet 08/09/17 Atorvastatin Ca [Lipitor] 40 mg PO HS #30 tablet 08/09/17 Docusate Sodium [Colace] 100 mg PO TID #90 capsule 08/09/17 Finasteride [Proscar -] 5 mg PO DAILY #30 tablet 08/09/17 Sennosides [Senna] 2 tab PO DAILY #60 tablet 08/09/17 - Diagnosis (1) GERD (gastroesophageal reflux disease) Current Visit: Yes Status: Chronic Qualifiers: Esophagitis presence: esophagitis presence not specified Qualified Code(s): K21.9 - Gastro-esophageal reflux disease without esophagitis (2) Hypercholesteremia Current Visit: Yes Status: Chronic (3) Alcohol dependence with uncomplicated withdrawal Current Visit: Yes Status: Acute (4) BPH (benign prostatic hyperplasia) Current Visit: Yes Status: Chronic Qualifiers: Lower urinary tract symptom detail: unspecified (5) Hypertension Current Visit: Yes Status: Chronic Qualifiers: Hypertension type: essential hypertension Qualified Code(s): I10 - Essential (primary) hypertension (6) Alcohol related seizure Current Visit: Yes Status: Suspected (7) Nicotine dependence Current Visit: Yes Status: Chronic Qualifiers: Nicotine product type: cigarettes Substance use status: in withdrawal Qualified Code(s): F17.213 - Nicotine dependence, cigarettes, with withdrawal (8) Constipation Current Visit: Yes Status: Chronic Qualifiers: Constipation type: unspecified constipation type Qualified Code(s): K59.00 - Constipation, unspecified (9) Arthritis of right hip Current Visit: Yes Status: Chronic - AMA Did Patient Leave Against Medical Advice: No
[2019-11-27] MEDS: CALCIUM CARBONATE 650 MG TABLET PO SCH (10:24)
[2019-11-27] MEDS: amLODIPine BESYLATE 5 MG TABLET (FP) PO SCH (10:24)
[2019-11-27] MEDS: FINASTERIDE 5 MG TABLET (FP) PO SCH (10:25)
[2019-11-27] MEDS: PRENATAL VITAMINS W/ FOLIC ACID TABLET (FP) PO SCH (10:25)
[2019-11-27] MEDS: METHOCARBAMOL 500 MG TABLET PO PRN (10:26)
[2019-11-27] MEDS: BACITRACIN 0.9 GM PACKET TP SCH (10:27)
[2019-11-27] MEDS: NICOTINE 7 MG/24 HOURS TOPICAL PATCH TD SCH (10:27)
[2019-11-27 13:40] VITALS: BP 118/72; PULSE 72; TEMP 98.2
== END 2019-11-27 15:15 | disposition home or self-care (01) | DRG 774 ==
LOC: YASAS 15:50 → Y5N DETOX 19:04
PROVIDERS: ADMIT Allergy & Immunology; ATTEND Allergy & Immunology
PROC: HZ2ZZZZ Detoxification Services for Substance Abuse Treatment (ICD-10-PCS; principal; 2019-11-23)
DX: F10.230 Alcohol dependence with withdrawal, uncomplicated (principal); F14.10 Cocaine abuse, uncomplicated; F12.10 Cannabis abuse, uncomplicated; F17.210 Nicotine dependence, cigarettes, uncomplicated; F19.24 Other psychoactive substance dependence with psychoactive substance-induced mood disorder; F31.9 Bipolar disorder, unspecified; E83.51 Hypocalcemia; E88.09 Other disorders of plasma-protein metabolism, not elsewhere classified; I10 Essential (primary) hypertension; K21.9 Gastro-esophageal reflux disease without esophagitis; M16.11 Unilateral primary osteoarthritis, right hip; N40.0 Benign prostatic hyperplasia without lower urinary tract symptoms; K59.00 Constipation, unspecified; R56.9 Unspecified convulsions; S00.412A Abrasion of left ear, initial encounter; X58.XXXA Exposure to other specified factors, initial encounter; Y93.89 Activity, other specified; Y92.238 Other place in hospital as the place of occurrence of the external cause; Y99.8 Other external cause status; Z88.0 Allergy status to penicillin; Z56.0 Unemployment, unspecified; Z59.0 Homelessness; Z91.5 Personal history of self-harm; Z91.14 Patient's other noncompliance with medication regimen
CPT/HCPCS: 36415; 80053; 85027; 86780; 93005; 93010; U0003

== ENCOUNTER 2019-11-27 15:36 | Inpatient (IN) | payer OTHER ==
[2019-11-27] MEDS ORDERED: MAGNESIUM HYDROX 2400MG/30ML ORAL SUSPENSION 30 ML CUP PO PRN (15:41)
[2019-11-27] MEDS ORDERED: LOPERAMIDE HCL 2 MG CAPSULE PO PRN (15:41)
[2019-11-27] MEDS ORDERED: MAGNESIUM CITRATE 300 ML BOTTLE PO PRN (15:41)
[2019-11-27] MEDS ORDERED: ACETAMINOPHEN 325 MG TABLET (FP) PO PRN (15:41)
[2019-11-27] MEDS ORDERED: P-EPHED 60MG/TRIPROLIDI 2.5MG TABLET PO PRN (15:41)
[2019-11-27] MEDS ORDERED: MENTHOL/PHENOL 1 EACH UD MM PRN (15:41)
[2019-11-27] MEDS ORDERED: guaiFENesin 200 MG/10 ML 10 ML UNIT-DOSE CUPS PO PRN (15:41)
[2019-11-27] MEDS ORDERED: IBUPROFEN 400 MG TABLET (FP) PO PRN (15:41)
--- NOTE | 2019-11-27 15:41 | HP ---
[facility] Rehab Assess/Revision - Findings Detox History & Physical reviewed: Yes Concur with findings: Yes Comments/Additional Findings: Pt is completed detox on and referred to [facility] for aftercare. Inpatient Rehab Admission - Rehab Decision to Admit Inpatient rehab admission?: Yes - Initial Determination Are CD services needed?: Yes Free of communicable disease: Yes Not in need of hospitalization: Yes - Rehab Admission Criteria Previous failed treatment: Yes Poor recovery environment: Yes Comorbidities: Yes Lacks judgement: Yes Patient is meeting Inpatient Rehab admission criteria:: Yes
[2019-11-27] MEDS ORDERED: GABAPENTIN 300 MG CAPSULE PO SCH (16:00)
[2019-11-27] MEDS: NICOTINE POLACRILEX 2 MG GUM BUC PRN (17:05)
[2019-11-27] MEDS: THIAMINE HCL 100 MG TABLET (FP) PO SCH (21:20)
[2019-11-27] MEDS: MELATONIN 5 MG TABLETS PO SCH (21:20)
[2019-11-28] MEDS ORDERED: MASKS NR ONE (06:28)
[2019-11-28] MEDS: GABAPENTIN 300 MG CAPSULE PO SCH ×3 (06:30→21:28)
[2019-11-28] MEDS: NICOTINE POLACRILEX 2 MG GUM BUC PRN ×3 (06:32→21:30)
[2019-11-28] MEDS ORDERED: PT OWN MED DRAWER 7, Y5N ONE (08:11)
[2019-11-28] MEDS: amLODIPine BESYLATE 5 MG TABLET (FP) PO SCH (09:49)
[2019-11-28] MEDS: NICOTINE 21 MG/24 HOURS TOPICAL PATCH TD SCH (09:49)
[2019-11-28] MEDS: PRENATAL VITAMINS W/ FOLIC ACID TABLET (FP) PO SCH (09:50)
[2019-11-28] MEDS: FINASTERIDE 5 MG TABLET (FP) PO SCH (09:50)
[2019-11-28] MEDS ORDERED: NICOTINE 7 MG/24 HOURS TOPICAL PATCH TD SCH (10:00)
[2019-11-28] MEDS: CALCIUM CARBONATE 650 MG TABLET PO SCH ×2 (10:25→21:28)
--- NOTE | 2019-11-28 12:34 | CONSULT ---
[facility] Psychiatric Consult - Data Date of interview: 11/28/19 Admission source: Transfer from [address] [place] [address]. Identifying data: Detoxification completed at [address] [place] [address]. Patient is now at [address] for rehabilitation treatment. He continues to address his MANAN issues (alcohol + nicotine) co-morbid with MDD (versus bipolar disorder) and insomnia. Patient is 54 years of age, male, single, no dependents, homeless, unemployed and financially supported by friends. Substance Abuse History: Rediscussed with the patient. MANAN profile as follows : patient started using alcohol at age 14 (consumes up to one liter of vodka daily); uses cocaine and marihuana on a sporadic basis; smokes one pack of cigarettes daily. Presents with a history of MANAN treatment failures. Medical History: Medical history is remarkable for arthritis (right hip), GERD, hypertension, dyslipidemia, benign prostatic hyperplasia, Psychiatric History: No changes in longitudinal history since encounter of 11/25/[address] [place] [address]. As follows : long standing history of psychiatric illness. Onset of depressive episodes : age 14. Mr Lei had his first psychiatric hospitalization in 2008 ([facility] in [facility] [place] History of grayson. Diagnosed with Bipolar Disorder. patrient reports history of multiple psychiatric hospitalizations ([facility] for three consecutive months : treated with 15 ECT sessions + [facility]). Dropped out of OPD care after his discharge. Non-compliant with medications (used to be on various molecules : zyprexa + depakote + effexor + wellbutrin + remeron + prozac). Patient is known to the [employer] program in [facility]. He admits to a distant history of one suicide attempt via hanging (10 years ago). Physical/Sexual Abuse/Trauma History: Patient denies history of abuse. Additional Comment: Urine drug screen results: BZO-Benzodiazepines. Noted on admission to the detoxification unit (11/24/19). Mental Status Exam - Mental Status Exam Alert and Oriented to: Time, Place, Person Cognitive Function: Good Patient Appearance: Well Groomed Mood: Hopeful Affect: Appropriate, Normal Range Patient Behavior: Appropriate, Cooperative Speech Pattern: Clear, Appropriate Voice Loudness: Normal Thought Process: Intact, Goal Oriented Thought Disorder: Not Present Hallucinations: Denies Suicidal Ideation: Denies Homicidal Ideation: Denies Insight/Judgement: Good Sleep: Poorly, Difficulty falling asleep Appetite: Good Gait/Station: Normal Psychiatric Findings - Problem List ([place] 1, 2,3) (1) Alcohol dependence Current Visit: Yes Status: Chronic (2) Nicotine dependence Current Visit: Yes Status: Chronic Qualifiers: Nicotine product type: cigarettes Substance use status: in withdrawal Qualified Code(s): F17.213 - Nicotine dependence, cigarettes, with withdrawal (3) History of depression Current Visit: Yes Status: Chronic (4) History of bipolar disorder Current Visit: Yes Status: Chronic (5) Insomnia Current Visit: Yes Status: Chronic - Initial Treatment Plan Initial Treatment Plan: Psychoeducation. Motivational counseling. Support. Individual/group therapy (observance of COVID-19 guidelines : face mask, social distancing, hand washing). Patient agrees only to mirtazapine. Dose is now titrated to 30 mg po hs (with patient's consent). Observation.
[2019-11-28] MEDS: MELATONIN 5 MG TABLETS PO SCH (21:27)
[2019-11-28] MEDS: THIAMINE HCL 100 MG TABLET (FP) PO SCH (21:27)
[2019-11-28] MEDS: hydrOXYzine PAMOATE 25 MG CAPSULE (FP) PO PRN (21:28)
[2019-11-28] MEDS: MIRTAZAPINE 15 MG TABLET (FP) PO SCH (21:29)
[2019-11-29] MEDS: GABAPENTIN 300 MG CAPSULE PO SCH ×3 (07:07→21:36)
[2019-11-29] MEDS: NICOTINE POLACRILEX 2 MG GUM BUC PRN ×3 (07:58→15:55)
[2019-11-29] MEDS ORDERED: PT OWN MED DRAWER 7, Y5N ONE (08:26)
[2019-11-29] MEDS: PRENATAL VITAMINS W/ FOLIC ACID TABLET (FP) PO SCH (09:43)
[2019-11-29] MEDS: CALCIUM CARBONATE 650 MG TABLET PO SCH ×2 (09:44→21:37)
[2019-11-29] MEDS: FINASTERIDE 5 MG TABLET (FP) PO SCH (09:44)
[2019-11-29] MEDS: NICOTINE 21 MG/24 HOURS TOPICAL PATCH TD SCH (09:45)
[2019-11-29] MEDS: amLODIPine BESYLATE 5 MG TABLET (FP) PO SCH (09:46)
[2019-11-29] MEDS: hydrOXYzine PAMOATE 25 MG CAPSULE (FP) PO PRN (21:36)
[2019-11-29] MEDS: MIRTAZAPINE 15 MG TABLET (FP) PO SCH (21:36)
[2019-11-29] MEDS: MELATONIN 5 MG TABLETS PO SCH (21:36)
[2019-11-29] MEDS: THIAMINE HCL 100 MG TABLET (FP) PO SCH (21:36)
[2019-11-30] MEDS: NICOTINE POLACRILEX 2 MG GUM BUC PRN ×5 (06:24→21:27)
[2019-11-30] MEDS: GABAPENTIN 300 MG CAPSULE PO SCH ×3 (06:24→21:26)
[2019-11-30] MEDS: NICOTINE 21 MG/24 HOURS TOPICAL PATCH TD SCH (09:34)
[2019-11-30] MEDS: PRENATAL VITAMINS W/ FOLIC ACID TABLET (FP) PO SCH (09:35)
[2019-11-30] MEDS: CALCIUM CARBONATE 650 MG TABLET PO SCH ×2 (09:35→21:27)
[2019-11-30] MEDS: amLODIPine BESYLATE 5 MG TABLET (FP) PO SCH (09:36)
[2019-11-30] MEDS: FINASTERIDE 5 MG TABLET (FP) PO SCH (09:36)
[2019-11-30] MEDS: MAG HYDROX/AL HYDROX/SIMETH 30 ML UNIT-DOSE CUP PO PRN ×2 (09:37→23:35)
[2019-11-30] MEDS ORDERED: PT OWN MED DRAWER 7, Y5N ONE (14:01)
[2019-11-30] MEDS: MELATONIN 5 MG TABLETS PO SCH (21:26)
[2019-11-30] MEDS: hydrOXYzine PAMOATE 25 MG CAPSULE (FP) PO PRN (21:26)
[2019-11-30] MEDS: THIAMINE HCL 100 MG TABLET (FP) PO SCH (21:26)
[2019-11-30] MEDS: MIRTAZAPINE 15 MG TABLET (FP) PO SCH (21:26)
[2019-12-01] MEDS: NICOTINE POLACRILEX 2 MG GUM BUC PRN ×3 (06:24→20:23)
[2019-12-01] MEDS: GABAPENTIN 300 MG CAPSULE PO SCH ×3 (06:24→21:35)
[2019-12-01] MEDS: MAG HYDROX/AL HYDROX/SIMETH 30 ML UNIT-DOSE CUP PO PRN ×2 (08:01→21:35)
[2019-12-01] MEDS ORDERED: PT OWN MED DRAWER 7, Y5N ONE ×2 (08:11→19:53)
[2019-12-01] MEDS: CALCIUM CARBONATE 650 MG TABLET PO SCH ×2 (09:51→21:35)
[2019-12-01] MEDS: NICOTINE 21 MG/24 HOURS TOPICAL PATCH TD SCH (09:51)
[2019-12-01] MEDS: amLODIPine BESYLATE 5 MG TABLET (FP) PO SCH (09:52)
[2019-12-01] MEDS: PRENATAL VITAMINS W/ FOLIC ACID TABLET (FP) PO SCH (09:52)
[2019-12-01] MEDS: FAMOTIDINE 20 MG TABLET PO SCH (09:53)
[2019-12-01] MEDS: FINASTERIDE 5 MG TABLET (FP) PO SCH (09:58)
[2019-12-01] MEDS: MIRTAZAPINE 15 MG TABLET (FP) PO SCH (21:35)
[2019-12-01] MEDS: MELATONIN 5 MG TABLETS PO SCH (21:35)
[2019-12-01] MEDS: THIAMINE HCL 100 MG TABLET (FP) PO SCH (21:36)
[2019-12-01] MEDS: ATORVASTATIN CA 40 MG TABLET (FP) PO SCH (22:02)
[2019-12-02] MEDS: GABAPENTIN 300 MG CAPSULE PO SCH ×3 (06:47→21:24)
[2019-12-02] MEDS: NICOTINE POLACRILEX 2 MG GUM BUC PRN ×4 (06:48→21:26)
[2019-12-02] MEDS ORDERED: PT OWN MED DRAWER 7, Y5N ONE ×2 (06:50→09:09)
[2019-12-02] MEDS: amLODIPine BESYLATE 5 MG TABLET (FP) PO SCH (09:49)
[2019-12-02] MEDS: NICOTINE 21 MG/24 HOURS TOPICAL PATCH TD SCH (09:49)
[2019-12-02] MEDS: FINASTERIDE 5 MG TABLET (FP) PO SCH (09:49)
[2019-12-02] MEDS: PRENATAL VITAMINS W/ FOLIC ACID TABLET (FP) PO SCH (09:49)
[2019-12-02] MEDS: FAMOTIDINE 20 MG TABLET PO SCH (09:49)
[2019-12-02] MEDS: CALCIUM CARBONATE 650 MG TABLET PO SCH ×2 (09:50→21:25)
[2019-12-02] MEDS: ATORVASTATIN CA 40 MG TABLET (FP) PO SCH (21:24)
[2019-12-02] MEDS: MIRTAZAPINE 15 MG TABLET (FP) PO SCH (21:24)
[2019-12-02] MEDS: THIAMINE HCL 100 MG TABLET (FP) PO SCH (21:24)
[2019-12-02] MEDS: MELATONIN 5 MG TABLETS PO SCH (21:24)
[2019-12-02] MEDS: hydrOXYzine PAMOATE 25 MG CAPSULE (FP) PO PRN (21:24)
[2019-12-03] MEDS: NICOTINE POLACRILEX 2 MG GUM BUC PRN (06:30)
[2019-12-03] MEDS: GABAPENTIN 300 MG CAPSULE PO SCH ×3 (06:30→21:26)
[2019-12-03] MEDS: PRENATAL VITAMINS W/ FOLIC ACID TABLET (FP) PO SCH (10:12)
[2019-12-03] MEDS: amLODIPine BESYLATE 5 MG TABLET (FP) PO SCH (10:13)
[2019-12-03] MEDS: FINASTERIDE 5 MG TABLET (FP) PO SCH (10:13)
[2019-12-03] MEDS: NICOTINE 21 MG/24 HOURS TOPICAL PATCH TD SCH (10:14)
[2019-12-03] MEDS: CALCIUM CARBONATE 650 MG TABLET PO SCH ×2 (10:14→21:26)
[2019-12-03] MEDS: FAMOTIDINE 20 MG TABLET PO SCH (10:14)
[2019-12-03] MEDS: hydrOXYzine PAMOATE 25 MG CAPSULE (FP) PO PRN ×2 (10:15→21:26)
--- NOTE | 2019-12-03 12:24 | PN ---
[facility] Progress Note Note: patient requested to see psychiatrist for reevaluation of medications
[2019-12-03] MEDS: NICOTINE POLACRILEX 4 MG GUM BUC PRN ×3 (14:11→21:27)
[2019-12-03] MEDS: MELATONIN 5 MG TABLETS PO SCH (21:26)
[2019-12-03] MEDS: ATORVASTATIN CA 40 MG TABLET (FP) PO SCH (21:26)
[2019-12-03] MEDS: MIRTAZAPINE 15 MG TABLET (FP) PO SCH (21:26)
[2019-12-03] MEDS: THIAMINE HCL 100 MG TABLET (FP) PO SCH (21:26)
[2019-12-04] MEDS: GABAPENTIN 300 MG CAPSULE PO SCH ×3 (06:34→21:12)
[2019-12-04] MEDS: NICOTINE POLACRILEX 4 MG GUM BUC PRN ×3 (06:35→17:00)
[2019-12-04] MEDS: FINASTERIDE 5 MG TABLET (FP) PO SCH (10:26)
[2019-12-04] MEDS: amLODIPine BESYLATE 5 MG TABLET (FP) PO SCH (10:26)
[2019-12-04] MEDS: CALCIUM CARBONATE 650 MG TABLET PO SCH ×2 (10:26→21:13)
[2019-12-04] MEDS: FAMOTIDINE 20 MG TABLET PO SCH (10:26)
[2019-12-04] MEDS: PRENATAL VITAMINS W/ FOLIC ACID TABLET (FP) PO SCH (10:26)
[2019-12-04] MEDS: NICOTINE 21 MG/24 HOURS TOPICAL PATCH TD SCH (10:26)
--- NOTE | 2019-12-04 16:02 | DS ---
[facility] Rehab Discharge Summary - [facility] Rehab Discharge Summary Admission Date: 11/27/19 Discharge Date: 12/04/19 - History Present History: Alcohol dependence - Discharge Physical Exam Vital Signs: Vital Signs Temperature 97.3 F L 12/04/19 06:41 Pulse Rate 79 12/04/19 10:23 Respiratory Rate 18 12/04/19 06:41 Blood Pressure 115/61 12/04/19 10:23 O2 Sat by Pulse Oximetry (%) 95 12/04/19 14:03 Ambulatory Orders Bupropion HCl [Wellbutrin -] 100 mg PO DAILY #30 tablet 08/06/17 Divalproex [Depakote -] 500 mg PO HS #60 tablet.ec 08/06/17 Olanzapine [Zyprexa -] 5 mg PO HS #30 tablet 08/06/17 Venlafaxine HCl ER [Effexor Xr -] 75 mg PO DAILY@0800 #30 cap.er.24h 08/06/17 Docusate Sodium [Colace] 100 mg PO TID #90 capsule 08/09/17 Sennosides [Senna] 2 tab PO DAILY #60 tablet 08/09/17 Amlodipine Besylate [Norvasc -] 5 mg PO DAILY #14 tablet 12/04/19 Atorvastatin Ca [Lipitor] 40 mg PO HS #14 tablet 12/04/19 Famotidine [Pepcid -] 20 mg PO DAILY #14 tablet 12/04/19 Finasteride [Proscar -] 5 mg PO DAILY #14 tablet 12/04/19 Gabapentin [Neurontin -] 600 mg PO Q8H #42 cap 12/04/19 Mirtazapine [Remeron -] 15 mg PO HS #30 tablet 12/04/19 Laboratory Tests 11/28/19 08:00 HIV Ag/Ab Combo Qual Negative ROS: denies headache, shakes, sweating and alcohol cravings PE alert and oriented x 3 skin warm and dry neck supple, no jvd in no acute distress ext full rom, no tremors amb ad bear denies si/hi A/P: alcohol dependence HTN HLD GERD BPH Patient is medically stable at this time for d/c in am aftercare arranged for [facility] for 12/05/2019 9am - Treatment Discharge Condition: Outpatient referral accepted Hospital Course: Patient scheduled for discharge from rehab for alcohol dependnece on12/05/2019 at 7:30am. Patient is medically stable at this time and denies SI/HI. Aftercare arranged for [facility] and appt scheduled for 12/05/2019 at 9am. During course of treatment, patient attended group meetings, 1:1 sessions with counselor and evaluated and treated by psych team. Patient medically advised to follow up with OTP referral to maintain sobriety and to schedule appt with PCP for PE/scheduled follow up. - Medication Discharge Medications: Ambulatory Orders Bupropion HCl [Wellbutrin -] 100 mg PO DAILY #30 tablet 08/06/17 Divalproex [Depakote -] 500 mg PO HS #60 tablet.ec 08/06/17 Olanzapine [Zyprexa -] 5 mg PO HS #30 tablet 08/06/17 Venlafaxine HCl ER [Effexor Xr -] 75 mg PO DAILY@0800 #30 cap.er.24h 08/06/17 Docusate Sodium [Colace] 100 mg PO TID #90 capsule 08/09/17 Sennosides [Senna] 2 tab PO DAILY #60 tablet 08/09/17 Amlodipine Besylate [Norvasc -] 5 mg PO DAILY #14 tablet 12/04/19 Atorvastatin Ca [Lipitor] 40 mg PO HS #14 tablet 12/04/19 Famotidine [Pepcid -] 20 mg PO DAILY #14 tablet 12/04/19 Finasteride [Proscar -] 5 mg PO DAILY #14 tablet 12/04/19 Gabapentin [Neurontin -] 600 mg PO Q8H #42 cap 12/04/19 Mirtazapine [Remeron -] 15 mg PO HS #30 tablet 12/04/19 - Discharge Instructions Diet, activity, other medical instructions: Diet: ERNESTO diet as tolerted Activity: as tolerated Other medical instructions: f/u with pcp as recommended - Follow-up Referral Minutes to complete discharge: 30 - AMA Did Patient Leave Against Medical Advice: No
--- NOTE | 2019-12-04 17:43 | PN ---
Psychiatric Progress Note Vital Signs: Vital Signs Period Temp Pulse Resp BP Sys/[place] Pulse Ox Last 24 Hr 97.3 F 79-97 18 99-115/61-66 95-96 Date of Session: 12/04/19 Chief Complaint:: No complaint offered. HPI: Day 7 of rehabilitation treatment at [address] Benign hospital course. Mr Lei declares that he wanted to see the psychiatrist to inquire about prescription for miratazapine (patient scheduled for discharge in the morning). ROS: Unremarkable. No complaints. Current Medications: Active Medications Generic Name Dose Route Start Last Admin Trade Name Freq PRN Reason Stop Dose Admin Acetaminophen 650 mg 11/27/19 15:41 Tylenol - PO Q4H PRN FEVER Al Hydroxide/Mg Hydroxide 30 ml 11/27/19 15:41 12/01/19 21:35 Mylanta Oral Suspension - PO 30 ml Q6H PRN Administration DYSPEPSIA Amlodipine Besylate 5 mg 11/28/19 10:00 12/04/19 10:26 Norvasc - PO 5 mg DAILY MARII Administration Atorvastatin Calcium 40 mg 12/01/19 22:00 12/03/19 21:26 Lipitor - PO 40 mg HS MARII Administration Calcium Carbonate 650 mg 11/28/19 10:00 12/04/19 10:26 Calcium Carbonate - PO 650 mg BID MARII Administration Eucalyptus/Menthol/Phenol/Sorbitol 1 each 11/27/19 15:41 Cepastat Lozenge - MM Q4H PRN SORE THROAT Famotidine 20 mg 12/01/19 10:00 12/04/19 10:26 Pepcid - PO 20 mg DAILY MARII Administration Finasteride 5 mg 11/28/19 10:00 12/04/19 10:26 Proscar - PO 5 mg DAILY MARII Administration Gabapentin 600 mg 11/28/19 06:00 12/04/19 13:04 Neurontin - PO 600 mg TID MARII Administration Guaifenesin 10 ml 11/27/19 15:41 Robitussin - PO Q6H PRN COUGH Hydroxyzine Pamoate 25 mg 11/27/19 15:41 12/03/19 21:26 Vistaril - PO 25 mg Q4H PRN Administration ANXIETY Ibuprofen 400 mg 11/27/19 15:41 Motrin - PO Q6H PRN Pain Level 4-6 Loperamide HCl 4 mg 11/27/19 15:41 Imodium - PO Q6H PRN DIARRHEA Magnesium Citrate 300 ml 11/27/19 15:41 Citroma - PO Q48H PRN CONSTIPATION Magnesium Hydroxide 30 ml 11/27/19 15:41 Milk Of Magnesia - PO DAILY PRN CONSTIPATION Melatonin 5 mg 11/27/19 22:00 12/03/19 21:26 Melatonin PO 5 mg HS MARII Administration Mirtazapine 15 mg 11/28/19 22:00 12/03/19 21:26 Remeron - PO 15 mg HS MARII Administration Nicotine 21 mg 11/28/19 10:00 12/04/19 10:26 Nicoderm Patch - TD 21 mg DAILY MARII Administration Nicotine Polacrilex 4 mg 12/03/19 07:10 12/04/19 17:00 Nicorette Gum - BUC 4 mg Q2H PRN Administration NICOTINE REPLACEMENT RX Multivit/Folic Acid/Iron 1 tab 11/28/19 10:00 12/04/19 10:26 Vitamins (Sjr) - PO 1 tab DAILY MARII Administration Pseudoephedrine/Triprolidine 1 combo 11/27/19 15:41 Actifed - PO TID PRN NASAL CONGESTION Thiamine HCl 100 mg 11/27/19 22:00 12/03/19 21:26 Vitamin B1 - PO 100 mg HS MARII Administration Medication(s) Change(s): None. Script for remeron 15 mg po hs Tab # 30 : sent electronically to [employer] ([phone]). Current Side Effect: No Lab tests ordered: No Lab tests reviewed: Yes Provider note:: Chart reviewed. Met with the patient. Mr Lei offers no complaints. " I sleep well and wake up in the morning feeling well rested." Admits to good appetite and well balanced mood. No evidence of psychosis. No delusion elicited. Patient is observed as well groomed, sociable, conversant and considerate of of peers and staff. He denies suicidal and homicidal idetaion, intent or plan. Mental status is stable. Mr Lei considers his stay at [facility] to be beneficial in terms of learning (coping skills, enhanced awareness about triggers leading to relapses, importance of spirituality). Men jazmín status is stable. See MSE report for details. Patient is at his baseline. Total face to face time:: 35 Mental Status Exam - Mental Status Exam Alert and Oriented to: Time, Place, Person Cognitive Function: Good Patient Appearance: Well Groomed Mood: Hopeful, Euthymic Affect: Appropriate, Normal Range Patient Behavior: Appropriate, Cooperative Speech Pattern: Clear, Appropriate Voice Loudness: Normal Thought Process: Intact, Goal Oriented Thought Disorder: Not Present Hallucinations: Denies Suicidal Ideation: Denies Homicidal Ideation: Denies Insight/Judgement: Fair Sleep: Well Appetite: Good Gait/Station: Normal Psychiatric Treatment Plan - Problem List (1) Alcohol dependence Current Visit: Yes Comment: . (2) Nicotine dependence Current Visit: Yes Qualifiers: Nicotine product type: cigarettes Substance use status: in withdrawal Qualified Code(s): F17.213 - Nicotine dependence, cigarettes, with withdrawal Comment: . (3) History of depression Current Visit: Yes Comment: . (4) History of bipolar disorder Current Visit: Yes Comment: . (5) Insomnia Current Visit: Yes Comment: .
[2019-12-04] MEDS: THIAMINE HCL 100 MG TABLET (FP) PO SCH (21:12)
[2019-12-04] MEDS: MELATONIN 5 MG TABLETS PO SCH (21:12)
[2019-12-04] MEDS: hydrOXYzine PAMOATE 25 MG CAPSULE (FP) PO PRN (21:12)
[2019-12-04] MEDS: ATORVASTATIN CA 40 MG TABLET (FP) PO SCH (21:12)
[2019-12-04] MEDS: MIRTAZAPINE 15 MG TABLET (FP) PO SCH (21:12)
[2019-12-04] MEDS ORDERED: PT OWN MED DRAWER 7, Y5N ONE (23:04)
[2019-12-05] MEDS: GABAPENTIN 300 MG CAPSULE PO SCH ×3 (06:43→21:04)
[2019-12-05] MEDS: NICOTINE POLACRILEX 4 MG GUM BUC PRN ×3 (06:44→21:06)
[2019-12-05] MEDS ORDERED: PT OWN MED DRAWER 7, Y5N ONE ×2 (08:10→15:44)
[2019-12-05] MEDS: NICOTINE 21 MG/24 HOURS TOPICAL PATCH TD SCH (09:16)
[2019-12-05] MEDS: CALCIUM CARBONATE 650 MG TABLET PO SCH ×2 (09:16→21:04)
[2019-12-05] MEDS: FINASTERIDE 5 MG TABLET (FP) PO SCH (09:17)
[2019-12-05] MEDS: FAMOTIDINE 20 MG TABLET PO SCH (09:17)
[2019-12-05] MEDS: amLODIPine BESYLATE 5 MG TABLET (FP) PO SCH (09:17)
[2019-12-05] MEDS: PRENATAL VITAMINS W/ FOLIC ACID TABLET (FP) PO SCH (09:17)
[2019-12-05] MEDS: MIRTAZAPINE 15 MG TABLET (FP) PO SCH (21:04)
[2019-12-05] MEDS: ATORVASTATIN CA 40 MG TABLET (FP) PO SCH (21:04)
[2019-12-05] MEDS: hydrOXYzine PAMOATE 25 MG CAPSULE (FP) PO PRN (21:04)
[2019-12-05] MEDS: MELATONIN 5 MG TABLETS PO SCH (21:05)
[2019-12-05] MEDS: THIAMINE HCL 100 MG TABLET (FP) PO SCH (21:05)
[2019-12-06] MEDS: GABAPENTIN 300 MG CAPSULE PO SCH ×3 (06:32→21:30)
[2019-12-06] MEDS: NICOTINE POLACRILEX 4 MG GUM BUC PRN ×3 (06:33→18:48)
[2019-12-06 07:00] VITALS: TEMP 97.8
[2019-12-06] MEDS ORDERED: PT OWN MED DRAWER 7, Y5N ONE ×2 (09:08→21:52)
[2019-12-06] MEDS: PRENATAL VITAMINS W/ FOLIC ACID TABLET (FP) PO SCH (10:31)
[2019-12-06] MEDS: NICOTINE 21 MG/24 HOURS TOPICAL PATCH TD SCH (10:31)
[2019-12-06] MEDS: CALCIUM CARBONATE 650 MG TABLET PO SCH ×2 (10:32→21:32)
[2019-12-06] MEDS: amLODIPine BESYLATE 5 MG TABLET (FP) PO SCH (10:32)
[2019-12-06] MEDS: FAMOTIDINE 20 MG TABLET PO SCH (10:32)
[2019-12-06] MEDS: FINASTERIDE 5 MG TABLET (FP) PO SCH (10:32)
[2019-12-06] MEDS: MELATONIN 5 MG TABLETS PO SCH (21:29)
[2019-12-06] MEDS: MIRTAZAPINE 15 MG TABLET (FP) PO SCH (21:30)
[2019-12-06] MEDS: hydrOXYzine PAMOATE 25 MG CAPSULE (FP) PO PRN (21:30)
[2019-12-06] MEDS: ATORVASTATIN CA 40 MG TABLET (FP) PO SCH (21:30)
[2019-12-06] MEDS: THIAMINE HCL 100 MG TABLET (FP) PO SCH (21:30)
[2019-12-07] MEDS: GABAPENTIN 300 MG CAPSULE PO SCH ×3 (07:38→21:33)
[2019-12-07] MEDS ORDERED: PT OWN MED DRAWER 7, Y5N ONE ×2 (08:15→23:06)
[2019-12-07] MEDS: CALCIUM CARBONATE 650 MG TABLET PO SCH ×2 (09:21→21:34)
[2019-12-07] MEDS: FINASTERIDE 5 MG TABLET (FP) PO SCH (09:22)
[2019-12-07] MEDS: PRENATAL VITAMINS W/ FOLIC ACID TABLET (FP) PO SCH (09:22)
[2019-12-07] MEDS: FAMOTIDINE 20 MG TABLET PO SCH (09:22)
[2019-12-07] MEDS: NICOTINE 21 MG/24 HOURS TOPICAL PATCH TD SCH (09:22)
[2019-12-07] MEDS: amLODIPine BESYLATE 5 MG TABLET (FP) PO SCH (09:22)
[2019-12-07] MEDS: NICOTINE POLACRILEX 4 MG GUM BUC PRN ×5 (09:23→21:34)
[2019-12-07] MEDS: THIAMINE HCL 100 MG TABLET (FP) PO SCH (21:33)
[2019-12-07] MEDS: MIRTAZAPINE 15 MG TABLET (FP) PO SCH (21:33)
[2019-12-07] MEDS: hydrOXYzine PAMOATE 25 MG CAPSULE (FP) PO PRN (21:33)
[2019-12-07] MEDS: ATORVASTATIN CA 40 MG TABLET (FP) PO SCH (21:33)
[2019-12-07] MEDS: MELATONIN 5 MG TABLETS PO SCH (21:33)
[2019-12-08] MEDS: GABAPENTIN 300 MG CAPSULE PO SCH ×3 (06:55→21:42)
[2019-12-08] MEDS: NICOTINE POLACRILEX 4 MG GUM BUC PRN ×4 (09:41→21:43)
[2019-12-08] MEDS: amLODIPine BESYLATE 5 MG TABLET (FP) PO SCH (09:41)
[2019-12-08] MEDS: CALCIUM CARBONATE 650 MG TABLET PO SCH ×2 (09:41→21:46)
[2019-12-08] MEDS: PRENATAL VITAMINS W/ FOLIC ACID TABLET (FP) PO SCH (09:42)
[2019-12-08] MEDS: FINASTERIDE 5 MG TABLET (FP) PO SCH (09:42)
[2019-12-08] MEDS: NICOTINE 21 MG/24 HOURS TOPICAL PATCH TD SCH (09:42)
[2019-12-08] MEDS: FAMOTIDINE 20 MG TABLET PO SCH (09:42)
[2019-12-08] MEDS: MELATONIN 5 MG TABLETS PO SCH (21:42)
[2019-12-08] MEDS: THIAMINE HCL 100 MG TABLET (FP) PO SCH (21:42)
[2019-12-08] MEDS: ATORVASTATIN CA 40 MG TABLET (FP) PO SCH (21:42)
[2019-12-08] MEDS: MIRTAZAPINE 15 MG TABLET (FP) PO SCH (21:42)
[2019-12-09] MEDS: GABAPENTIN 300 MG CAPSULE PO SCH ×3 (07:08→21:48)
[2019-12-09] MEDS ORDERED: PT OWN MED DRAWER 7, Y5N ONE (09:11)
[2019-12-09] MEDS: CALCIUM CARBONATE 650 MG TABLET PO SCH ×2 (10:11→21:48)
[2019-12-09] MEDS: amLODIPine BESYLATE 5 MG TABLET (FP) PO SCH (10:12)
[2019-12-09] MEDS: FINASTERIDE 5 MG TABLET (FP) PO SCH (10:12)
[2019-12-09] MEDS: PRENATAL VITAMINS W/ FOLIC ACID TABLET (FP) PO SCH (10:12)
[2019-12-09] MEDS: FAMOTIDINE 20 MG TABLET PO SCH (10:12)
[2019-12-09] MEDS: NICOTINE 21 MG/24 HOURS TOPICAL PATCH TD SCH (10:13)
[2019-12-09] MEDS: NICOTINE POLACRILEX 4 MG GUM BUC PRN ×4 (13:41→21:51)
[2019-12-09] MEDS: hydrOXYzine PAMOATE 25 MG CAPSULE (FP) PO PRN (21:49)
[2019-12-09] MEDS: MIRTAZAPINE 15 MG TABLET (FP) PO SCH (21:49)
[2019-12-09] MEDS: THIAMINE HCL 100 MG TABLET (FP) PO SCH (21:49)
[2019-12-09] MEDS: MELATONIN 5 MG TABLETS PO SCH (21:50)
[2019-12-09] MEDS: ATORVASTATIN CA 40 MG TABLET (FP) PO SCH (21:50)
[2019-12-10] MEDS: GABAPENTIN 300 MG CAPSULE PO SCH ×3 (07:05→22:03)
[2019-12-10] MEDS: CALCIUM CARBONATE 650 MG TABLET PO SCH ×2 (09:51→22:03)
[2019-12-10] MEDS: amLODIPine BESYLATE 5 MG TABLET (FP) PO SCH (09:51)
[2019-12-10] MEDS: NICOTINE 21 MG/24 HOURS TOPICAL PATCH TD SCH (09:51)
[2019-12-10] MEDS: FINASTERIDE 5 MG TABLET (FP) PO SCH (09:52)
[2019-12-10] MEDS: FAMOTIDINE 20 MG TABLET PO SCH (09:52)
[2019-12-10] MEDS: PRENATAL VITAMINS W/ FOLIC ACID TABLET (FP) PO SCH (09:52)
[2019-12-10] MEDS: NICOTINE POLACRILEX 4 MG GUM BUC PRN ×4 (09:53→22:05)
--- NOTE | 2019-12-10 13:20 | PN ---
[facility] Progress Note Note: Psychiatric nurse practitioner note: Prrescription of Remeron 15mg HS ( 30 tablets) sent by Dr. Nunez to [facility].
[2019-12-10] MEDS ORDERED: PT OWN MED DRAWER 7, Y5N ONE (19:49)
[2019-12-10 21:23] VITALS: BP 102/82; PULSE 62
[2019-12-10] MEDS: MIRTAZAPINE 15 MG TABLET (FP) PO SCH (22:02)
[2019-12-10] MEDS: MELATONIN 5 MG TABLETS PO SCH (22:03)
[2019-12-10] MEDS: ATORVASTATIN CA 40 MG TABLET (FP) PO SCH (22:03)
[2019-12-10] MEDS: THIAMINE HCL 100 MG TABLET (FP) PO SCH (22:03)
[2019-12-11] MEDS: GABAPENTIN 300 MG CAPSULE PO SCH (07:54)
[2019-12-11] MEDS: NICOTINE POLACRILEX 4 MG GUM BUC PRN (08:24)
--- NOTE | 2019-12-11 08:48 | DS ---
[facility] Rehab Discharge Summary - [facility] Rehab Discharge Summary Admission Date: 11/27/19 Discharge Date: 12/11/19 - History Present History: Alcohol dependence Additional Comments: Pt reports he has primary care at [place], [place]. Pertinent Past History: hypertension BPH Hypercholesterolemia Hx Alcohol related Seizures GERD Arthritis right hip - Discharge Physical Exam Vital Signs: Vital Signs Temperature 97.8 F 12/06/19 05:48 Pulse Rate 62 12/11/19 06:26 Respiratory Rate 17 12/10/19 08:30 Blood Pressure 102/82 12/11/19 06:26 O2 Sat by Pulse Oximetry (%) 96 12/10/19 20:38 Alert o x 3 nad oob ambulating with steady gait Active ROM all extremities. Pertinent Admission Physical Exam Findings: Laboratory Tests 11/28/19 08:00 HIV Ag/Ab Combo Qual Negative - Treatment Discharge Condition: Discharge condition good Hospital Course: Pt completed detox and was referred to rehab. Completed rehab today and referred to [place], [place] for continued aftercare. - Medication Discharge Medications: Ambulatory Orders Bupropion HCl [Wellbutrin -] 100 mg PO DAILY #30 tablet 08/06/17 Divalproex [Depakote -] 500 mg PO HS #60 tablet.ec 08/06/17 Olanzapine [Zyprexa -] 5 mg PO HS #30 tablet 08/06/17 Venlafaxine HCl ER [Effexor Xr -] 75 mg PO DAILY@0800 #30 cap.er.24h 08/06/17 Docusate Sodium [Colace] 100 mg PO TID #90 capsule 08/09/17 Sennosides [Senna] 2 tab PO DAILY #60 tablet 08/09/17 Amlodipine Besylate [Norvasc -] 5 mg PO DAILY #14 tablet 12/04/19 Atorvastatin Ca [Lipitor] 40 mg PO HS #14 tablet 12/04/19 Famotidine [Pepcid -] 20 mg PO DAILY #14 tablet 12/04/19 Finasteride [Proscar -] 5 mg PO DAILY #14 tablet 12/04/19 Gabapentin [Neurontin -] 600 mg PO Q8H #42 cap 12/04/19 Mirtazapine [Remeron -] 15 mg PO HS #30 tablet 12/04/19 - Medication-Assisted Treatment (MAT) Medication-Assisted Treatment (MAT): No - Discharge Instructions Diet, activity, other medical instructions: Diet:ERNESTO Activity: oob ad bear Other medical instructions:follow up with [facility] aftercare as recommended. - Diagnosis (1) Alcohol dependence Status: Chronic Qualifiers: Substance use status: uncomplicated Qualified Code(s): F10.20 - Alcohol dependence, uncomplicated (2) Arthritis of right hip Status: Chronic (3) BPH (benign prostatic hyperplasia) Status: Chronic Qualifiers: Lower urinary tract symptom detail: unspecified (4) Constipation Status: Chronic Qualifiers: Constipation type: unspecified constipation type Qualified Code(s): K59.00 - Constipation, unspecified (5) GERD (gastroesophageal reflux disease) Status: Chronic Qualifiers: Esophagitis presence: esophagitis presence not specified Qualified Code(s): K21.9 - Gastro-esophageal reflux disease without esophagitis (6) Hypercholesteremia Status: Chronic (7) Hypertension Status: Chronic Qualifiers: Hypertension type: essential hypertension Qualified Code(s): I10 - Essential (primary) hypertension (8) Nicotine dependence Status: Chronic Qualifiers: Nicotine product type: cigarettes Substance use status: in withdrawal Qualified Code(s): F17.213 - Nicotine dependence, cigarettes, with withdrawal (9) Alcohol related seizure Status: Suspected - Follow-up Referral Minutes to complete discharge: 25 - AMA Did Patient Leave Against Medical Advice: No
== END 2019-12-11 08:52 | disposition home or self-care (01) | DRG 772 ==
LOC: YASAS 15:36 → Y3E 15:38
PROVIDERS: ADMIT Allergy & Immunology; ATTEND Allergy & Immunology
PROC: HZ42ZZZ Group Counseling for Substance Abuse Treatment, Cognitive-Behavioral (ICD-10-PCS; principal; 2019-11-27)
DX: F10.20 Alcohol dependence, uncomplicated (principal); F17.213 Nicotine dependence, cigarettes, with withdrawal; I10 Essential (primary) hypertension; N40.0 Benign prostatic hyperplasia without lower urinary tract symptoms; K59.00 Constipation, unspecified; K21.9 Gastro-esophageal reflux disease without esophagitis; E78.5 Hyperlipidemia, unspecified; M16.11 Unilateral primary osteoarthritis, right hip; G47.00 Insomnia, unspecified
CPT/HCPCS: 36415; 87389

== ENCOUNTER 2021-01-10 11:52 | Inpatient (IN) | payer OTHER ==
[2021-01-10 13:36] VITALS: BMI 26.4
[2021-01-10] MEDS ORDERED: BISMUTH SUBSALICYLATE 524 MG/30 ML PO PRN (13:54)
[2021-01-10] MEDS ORDERED: MAGNESIUM CITRATE 300 ML BOTTLE PO PRN (13:54)
[2021-01-10] MEDS ORDERED: ONDANSETRON *ODT* 4 MG TABLET SL PRN (13:54)
[2021-01-10] MEDS ORDERED: MENTHOL/PHENOL 1 EACH UD MM PRN (13:54)
[2021-01-10] MEDS ORDERED: MAGNESIUM HYDROX 2400MG/30ML ORAL SUSPENSION 30 ML CUP PO PRN (13:54)
[2021-01-10] MEDS ORDERED: IBUPROFEN 400 MG TABLET (FP) PO PRN (13:54)
[2021-01-10] MEDS ORDERED: ACETAMINOPHEN 325 MG TABLET (FP) PO PRN ×2 (13:54)
[2021-01-10] MEDS ORDERED: diazePAM 5 MG TABLET ONE (14:06)
[2021-01-10] MEDS ORDERED: diazePAM 5 MG TABLET PO ONE (14:15)
[2021-01-10] MEDS: diazePAM 5 MG TABLET PO SCH ×2 (16:48→22:26)
[2021-01-10] MEDS: hydrOXYzine PAMOATE 25 MG CAPSULE (FP) PO PRN (18:28)
[2021-01-10] MEDS: METHOCARBAMOL 500 MG TABLET PO PRN (18:28)
[2021-01-10] MEDS: diazePAM 5 MG TABLET PO PRN (19:15)
[2021-01-10] MEDS: MELATONIN 5 MG TABLETS PO SCH (22:27)
[2021-01-10] MEDS: THIAMINE HCL 100 MG TABLET (FP) PO SCH (22:27)
[2021-01-11] MEDS: diazePAM 5 MG TABLET PO SCH ×4 (05:52→22:28)
[2021-01-11] MEDS: METHOCARBAMOL 500 MG TABLET PO PRN ×2 (10:44→17:44)
[2021-01-11] MEDS: PRENATAL VITAMINS W/ FOLIC ACID TABLET (FP) PO SCH (10:44)
[2021-01-11 13:05] LABS: HEMOGLOBIN 14.6 GM/dL (11.7-16.9); MCH 32.1 pg (25.7-33.7); MCHC 34.9 g/dl (32.0-35.9); MEAN CELL VOLUME 92.1 fl (80-96); MEAN PLT VOLUME 7.9 fl (7.5-11.1); PLATELET COUNT 158 10^3/uL (134-434); RBC 4.56 M/mm3 (4.00-5.60); WHITE BLOOD COUNT 7.2 K/mm3 (4.0-10.0)
[2021-01-11 13:24] LABS: ALBUMIN 3.1 g/dl (3.4-5.0)
[2021-01-11 13:27] LABS: CREATININE 0.7 mg/dL (0.55-1.3)
[2021-01-11 13:28] LABS: BILIRUBIN,TOTAL 0.6 mg/dL (0.2-1); TOT PROT 6.7 g/dl (6.4-8.2)
[2021-01-11] MEDS: diazePAM 5 MG TABLET PO PRN ×2 (14:32→20:37)
[2021-01-11] MEDS: NICOTINE 10 MG CARTRIDGE (INHALER) IH PRN ×2 (14:34→20:05)
[2021-01-11] MEDS: hydrOXYzine PAMOATE 25 MG CAPSULE (FP) PO PRN ×2 (17:44→22:28)
[2021-01-11] MEDS: amLODIPine BESYLATE 5 MG TABLET (FP) PO SCH (20:02)
[2021-01-11] MEDS: THIAMINE HCL 100 MG TABLET (FP) PO SCH (22:26)
[2021-01-11] MEDS: MELATONIN 5 MG TABLETS PO SCH (22:26)
[2021-01-12] MEDS: NICOTINE 10 MG CARTRIDGE (INHALER) IH PRN ×5 (02:36→22:13)
[2021-01-12] MEDS: diazePAM 5 MG TABLET PO SCH ×3 (06:06→22:15)
[2021-01-12] MEDS: PRENATAL VITAMINS W/ FOLIC ACID TABLET (FP) PO SCH (10:22)
[2021-01-12] MEDS: amLODIPine BESYLATE 5 MG TABLET (FP) PO SCH (10:23)
[2021-01-12] MEDS: diazePAM 5 MG TABLET PO PRN (19:27)
[2021-01-12] MEDS: THIAMINE HCL 100 MG TABLET (FP) PO SCH (22:14)
[2021-01-12] MEDS: MELATONIN 5 MG TABLETS PO SCH (22:15)
[2021-01-13] MEDS: MAG HYDROX/AL HYDROX/SIMETH 30 ML UNIT-DOSE CUP PO PRN (02:31)
[2021-01-13] MEDS: diazePAM 5 MG TABLET PO SCH ×2 (06:03→17:36)
[2021-01-13] MEDS: NICOTINE 10 MG CARTRIDGE (INHALER) IH PRN ×5 (06:05→22:11)
[2021-01-13] MEDS: PRENATAL VITAMINS W/ FOLIC ACID TABLET (FP) PO SCH (10:16)
[2021-01-13] MEDS: amLODIPine BESYLATE 5 MG TABLET (FP) PO SCH (10:17)
[2021-01-13] MEDS: diazePAM 5 MG TABLET PO PRN (10:17)
[2021-01-13] MEDS: MELATONIN 5 MG TABLETS PO SCH (21:32)
[2021-01-13] MEDS: METHOCARBAMOL 500 MG TABLET PO PRN (21:34)
[2021-01-13] MEDS: THIAMINE HCL 100 MG TABLET (FP) PO SCH (21:34)
[2021-01-13] MEDS: hydrOXYzine PAMOATE 25 MG CAPSULE (FP) PO PRN (21:34)
[2021-01-14] MEDS: NICOTINE 10 MG CARTRIDGE (INHALER) IH PRN ×4 (05:33→18:41)
[2021-01-14] MEDS ORDERED: diazePAM 5 MG TABLET PO ONE (06:00)
[2021-01-14] MEDS: METHOCARBAMOL 500 MG TABLET PO PRN (10:17)
[2021-01-14] MEDS: PRENATAL VITAMINS W/ FOLIC ACID TABLET (FP) PO SCH (10:17)
[2021-01-14] MEDS: amLODIPine BESYLATE 5 MG TABLET (FP) PO SCH (10:17)
[2021-01-14 18:16] VITALS: BP 132/86; PULSE 92; TEMP 96.9
[2021-01-14] MEDS: MAG HYDROX/AL HYDROX/SIMETH 30 ML UNIT-DOSE CUP PO PRN (19:19)
[2021-01-14] MEDS: MELATONIN 5 MG TABLETS PO SCH (21:09)
[2021-01-14] MEDS: THIAMINE HCL 100 MG TABLET (FP) PO SCH (21:09)
== END 2021-01-14 17:36 | disposition other institution (70) | DRG 775 ==
LOC: YASAS 11:52 → Y6N 14:12
PROVIDERS: ADMIT Allergy & Immunology; ATTEND Allergy & Immunology
PROC: HZ2ZZZZ Detoxification Services for Substance Abuse Treatment (ICD-10-PCS; principal; 2021-01-10)
DX: F10.230 Alcohol dependence with withdrawal, uncomplicated (principal); F17.210 Nicotine dependence, cigarettes, uncomplicated; F19.24 Other psychoactive substance dependence with psychoactive substance-induced mood disorder; F31.9 Bipolar disorder, unspecified; E78.5 Hyperlipidemia, unspecified; I10 Essential (primary) hypertension; N40.0 Benign prostatic hyperplasia without lower urinary tract symptoms; R79.89 Other specified abnormal findings of blood chemistry; Z96.641 Presence of right artificial hip joint; Z88.0 Allergy status to penicillin; Z56.0 Unemployment, unspecified; Z59.0 Homelessness
CPT/HCPCS: 36415; 80053; 84520; 85027; 86780; C9803; U0003; U0005

== ENCOUNTER 2021-01-14 17:39 | Inpatient (IN) | payer OTHER ==
[2021-01-14] MEDS ORDERED: ACETAMINOPHEN 325 MG TABLET (FP) PO PRN (19:03)
[2021-01-14] MEDS ORDERED: guaiFENesin 200 MG/10 ML 10 ML UNIT-DOSE CUPS PO PRN (19:03)
[2021-01-14] MEDS ORDERED: MAGNESIUM CITRATE 300 ML BOTTLE PO PRN (19:03)
[2021-01-14] MEDS ORDERED: MAG HYDROX/AL HYDROX/SIMETH 30 ML UNIT-DOSE CUP PO PRN (19:03)
[2021-01-14] MEDS ORDERED: P-EPHED 60MG/TRIPROLIDI 2.5MG TABLET PO PRN (19:03)
[2021-01-14] MEDS ORDERED: MAGNESIUM HYDROX 2400MG/30ML ORAL SUSPENSION 30 ML CUP PO PRN (19:03)
[2021-01-14] MEDS ORDERED: LOPERAMIDE HCL 2 MG CAPSULE PO PRN (19:03)
[2021-01-14] MEDS ORDERED: MENTHOL/PHENOL 1 EACH UD MM PRN (19:03)
[2021-01-14] MEDS ORDERED: IBUPROFEN 400 MG TABLET (FP) PO PRN (19:03)
[2021-01-14] MEDS: ATORVASTATIN CA 40 MG TABLET (FP) PO SCH (21:53)
[2021-01-14] MEDS: MELATONIN 5 MG TABLETS PO SCH (21:57)
[2021-01-14] MEDS: THIAMINE HCL 100 MG TABLET (FP) PO SCH (21:57)
[2021-01-14] MEDS: NICOTINE 10 MG CARTRIDGE (INHALER) IH PRN (22:06)
[2021-01-15] MEDS: NICOTINE 10 MG CARTRIDGE (INHALER) IH PRN ×4 (06:32→23:39)
[2021-01-15] MEDS ORDERED: PT OWN MED DRAWER 7, Y5N ONE (08:55)
[2021-01-15] MEDS ORDERED: amLODIPine BESYLATE 5 MG TABLET (FP) PO SCH (10:00)
[2021-01-15] MEDS: amLODIPine BESYLATE 5 MG TABLET (FP) PO SCH (10:26)
[2021-01-15] MEDS: PRENATAL VITAMINS W/ FOLIC ACID TABLET (FP) PO SCH (10:26)
[2021-01-15] MEDS: FINASTERIDE 5 MG TABLET (FP) PO SCH (10:26)
[2021-01-15] MEDS: MELATONIN 5 MG TABLETS PO SCH (21:24)
[2021-01-15] MEDS: THIAMINE HCL 100 MG TABLET (FP) PO SCH (21:24)
[2021-01-15] MEDS: ATORVASTATIN CA 40 MG TABLET (FP) PO SCH (21:25)
[2021-01-16] MEDS: NICOTINE 10 MG CARTRIDGE (INHALER) IH PRN ×6 (06:28→23:10)
[2021-01-16] MEDS: PRENATAL VITAMINS W/ FOLIC ACID TABLET (FP) PO SCH (10:17)
[2021-01-16] MEDS: FINASTERIDE 5 MG TABLET (FP) PO SCH (10:17)
[2021-01-16] MEDS: amLODIPine BESYLATE 5 MG TABLET (FP) PO SCH (10:17)
[2021-01-16] MEDS: MELATONIN 5 MG TABLETS PO SCH (21:02)
[2021-01-16] MEDS: ATORVASTATIN CA 40 MG TABLET (FP) PO SCH (21:02)
[2021-01-16] MEDS: THIAMINE HCL 100 MG TABLET (FP) PO SCH (21:02)
[2021-01-17] MEDS: NICOTINE 10 MG CARTRIDGE (INHALER) IH PRN ×7 (06:28→23:38)
[2021-01-17] MEDS: PRENATAL VITAMINS W/ FOLIC ACID TABLET (FP) PO SCH (10:07)
[2021-01-17] MEDS: FINASTERIDE 5 MG TABLET (FP) PO SCH (10:07)
[2021-01-17] MEDS: amLODIPine BESYLATE 5 MG TABLET (FP) PO SCH (10:07)
[2021-01-17] MEDS: THIAMINE HCL 100 MG TABLET (FP) PO SCH (21:33)
[2021-01-17] MEDS: ATORVASTATIN CA 40 MG TABLET (FP) PO SCH (21:33)
[2021-01-17] MEDS: MELATONIN 5 MG TABLETS PO SCH (21:33)
[2021-01-18] MEDS: NICOTINE 10 MG CARTRIDGE (INHALER) IH PRN ×7 (07:14→22:03)
[2021-01-18] MEDS: FINASTERIDE 5 MG TABLET (FP) PO SCH (09:10)
[2021-01-18] MEDS: PRENATAL VITAMINS W/ FOLIC ACID TABLET (FP) PO SCH (09:10)
[2021-01-18] MEDS: amLODIPine BESYLATE 5 MG TABLET (FP) PO SCH (09:10)
[2021-01-18] MEDS: MELATONIN 5 MG TABLETS PO SCH (21:12)
[2021-01-18] MEDS: ATORVASTATIN CA 40 MG TABLET (FP) PO SCH (21:12)
[2021-01-18] MEDS: THIAMINE HCL 100 MG TABLET (FP) PO SCH (21:12)
[2021-01-19] MEDS: NICOTINE 10 MG CARTRIDGE (INHALER) IH PRN ×4 (06:29→15:20)
[2021-01-19] MEDS: amLODIPine BESYLATE 5 MG TABLET (FP) PO SCH (10:14)
[2021-01-19] MEDS: FINASTERIDE 5 MG TABLET (FP) PO SCH (10:14)
[2021-01-19] MEDS: PRENATAL VITAMINS W/ FOLIC ACID TABLET (FP) PO SCH (10:14)
[2021-01-19] MEDS: ATORVASTATIN CA 40 MG TABLET (FP) PO SCH (21:56)
[2021-01-19] MEDS: MELATONIN 5 MG TABLETS PO SCH (21:56)
[2021-01-19] MEDS: THIAMINE HCL 100 MG TABLET (FP) PO SCH (21:56)
[2021-01-20] MEDS: FINASTERIDE 5 MG TABLET (FP) PO SCH (09:54)
[2021-01-20] MEDS: amLODIPine BESYLATE 5 MG TABLET (FP) PO SCH (09:54)
[2021-01-20] MEDS: PRENATAL VITAMINS W/ FOLIC ACID TABLET (FP) PO SCH (09:54)
[2021-01-20] MEDS: NICOTINE 10 MG CARTRIDGE (INHALER) IH PRN ×5 (09:55→22:59)
[2021-01-20] MEDS: THIAMINE HCL 100 MG TABLET (FP) PO SCH (21:06)
[2021-01-20] MEDS: MELATONIN 5 MG TABLETS PO SCH (21:07)
[2021-01-20] MEDS: ATORVASTATIN CA 40 MG TABLET (FP) PO SCH (21:07)
[2021-01-21] MEDS: NICOTINE 10 MG CARTRIDGE (INHALER) IH PRN ×6 (08:08→21:54)
[2021-01-21] MEDS ORDERED: PT OWN MED DRAWER 7, Y5N ONE (09:20)
[2021-01-21] MEDS: PRENATAL VITAMINS W/ FOLIC ACID TABLET (FP) PO SCH (10:34)
[2021-01-21] MEDS: FINASTERIDE 5 MG TABLET (FP) PO SCH (10:34)
[2021-01-21] MEDS: amLODIPine BESYLATE 5 MG TABLET (FP) PO SCH (10:34)
[2021-01-21] MEDS: THIAMINE HCL 100 MG TABLET (FP) PO SCH (21:55)
[2021-01-21] MEDS: MELATONIN 5 MG TABLETS PO SCH (21:55)
[2021-01-21] MEDS: ATORVASTATIN CA 40 MG TABLET (FP) PO SCH (21:55)
[2021-01-22] MEDS ORDERED: PT OWN MED DRAWER 7, Y5N ONE (09:08)
[2021-01-22] MEDS: FINASTERIDE 5 MG TABLET (FP) PO SCH (09:58)
[2021-01-22] MEDS: NICOTINE 10 MG CARTRIDGE (INHALER) IH PRN ×5 (09:58→21:12)
[2021-01-22] MEDS: PRENATAL VITAMINS W/ FOLIC ACID TABLET (FP) PO SCH (09:58)
[2021-01-22] MEDS: amLODIPine BESYLATE 5 MG TABLET (FP) PO SCH (09:58)
[2021-01-22] MEDS ORDERED: TETRAHYDROZOLINE HCL EYE DROPS OU PRN (11:00)
[2021-01-22] MEDS ORDERED: CARBAMIDE PEROXIDE 6.5% OTIC 15 ML BOTTLE AU SCH (12:00)
[2021-01-22] MEDS ORDERED: METHOCARBAMOL 500 MG TABLET PO SCH (14:00)
[2021-01-22] MEDS: MELATONIN 5 MG TABLETS PO SCH (21:11)
[2021-01-22] MEDS: THIAMINE HCL 100 MG TABLET (FP) PO SCH (21:11)
[2021-01-22] MEDS: ATORVASTATIN CA 40 MG TABLET (FP) PO SCH (21:11)
[2021-01-23] MEDS: NICOTINE 10 MG CARTRIDGE (INHALER) IH PRN ×5 (06:38→21:32)
[2021-01-23] MEDS: amLODIPine BESYLATE 5 MG TABLET (FP) PO SCH (10:36)
[2021-01-23] MEDS: PRENATAL VITAMINS W/ FOLIC ACID TABLET (FP) PO SCH (10:36)
[2021-01-23] MEDS: FINASTERIDE 5 MG TABLET (FP) PO SCH (10:36)
[2021-01-23] MEDS: ATORVASTATIN CA 40 MG TABLET (FP) PO SCH (21:33)
[2021-01-23] MEDS: THIAMINE HCL 100 MG TABLET (FP) PO SCH (21:33)
[2021-01-23] MEDS: MELATONIN 5 MG TABLETS PO SCH (21:33)
[2021-01-24] MEDS: NICOTINE 10 MG CARTRIDGE (INHALER) IH PRN ×6 (06:39→19:32)
[2021-01-24] MEDS ORDERED: PT OWN MED DRAWER 7, Y5N ONE (09:00)
[2021-01-24] MEDS: amLODIPine BESYLATE 5 MG TABLET (FP) PO SCH (09:40)
[2021-01-24] MEDS: PRENATAL VITAMINS W/ FOLIC ACID TABLET (FP) PO SCH (09:40)
[2021-01-24] MEDS: FINASTERIDE 5 MG TABLET (FP) PO SCH (09:40)
[2021-01-24] MEDS: THIAMINE HCL 100 MG TABLET (FP) PO SCH (21:20)
[2021-01-24] MEDS: ATORVASTATIN CA 40 MG TABLET (FP) PO SCH (21:20)
[2021-01-24] MEDS: MELATONIN 5 MG TABLETS PO SCH (21:20)
[2021-01-25] MEDS: NICOTINE 10 MG CARTRIDGE (INHALER) IH PRN ×6 (06:40→21:28)
[2021-01-25] MEDS ORDERED: PT OWN MED DRAWER 7, Y5N ONE (09:10)
[2021-01-25] MEDS: amLODIPine BESYLATE 5 MG TABLET (FP) PO SCH (10:25)
[2021-01-25] MEDS: PRENATAL VITAMINS W/ FOLIC ACID TABLET (FP) PO SCH (10:25)
[2021-01-25] MEDS: FINASTERIDE 5 MG TABLET (FP) PO SCH (10:25)
[2021-01-25] MEDS: ATORVASTATIN CA 40 MG TABLET (FP) PO SCH (21:28)
[2021-01-25] MEDS: MELATONIN 5 MG TABLETS PO SCH (21:28)
[2021-01-25] MEDS: THIAMINE HCL 100 MG TABLET (FP) PO SCH (21:28)
[2021-01-26] MEDS: NICOTINE 10 MG CARTRIDGE (INHALER) IH PRN ×6 (06:32→22:36)
[2021-01-26] MEDS: FINASTERIDE 5 MG TABLET (FP) PO SCH (09:42)
[2021-01-26] MEDS: PRENATAL VITAMINS W/ FOLIC ACID TABLET (FP) PO SCH (09:42)
[2021-01-26] MEDS: amLODIPine BESYLATE 5 MG TABLET (FP) PO SCH (09:42)
[2021-01-26] MEDS: MELATONIN 5 MG TABLETS PO SCH (21:10)
[2021-01-26] MEDS: THIAMINE HCL 100 MG TABLET (FP) PO SCH (21:10)
[2021-01-26] MEDS: ATORVASTATIN CA 40 MG TABLET (FP) PO SCH (21:10)
[2021-01-27] MEDS: NICOTINE 10 MG CARTRIDGE (INHALER) IH PRN ×6 (08:45→21:23)
[2021-01-27] MEDS: FINASTERIDE 5 MG TABLET (FP) PO SCH (10:40)
[2021-01-27] MEDS: amLODIPine BESYLATE 5 MG TABLET (FP) PO SCH (10:40)
[2021-01-27] MEDS: PRENATAL VITAMINS W/ FOLIC ACID TABLET (FP) PO SCH (10:40)
[2021-01-27] MEDS: THIAMINE HCL 100 MG TABLET (FP) PO SCH (21:22)
[2021-01-27] MEDS: MELATONIN 5 MG TABLETS PO SCH (21:22)
[2021-01-27] MEDS: ATORVASTATIN CA 40 MG TABLET (FP) PO SCH (21:22)
[2021-01-28 07:01] VITALS: BP 106/67; PULSE 73; TEMP 96.8
[2021-01-28] MEDS: FINASTERIDE 5 MG TABLET (FP) PO SCH (09:49)
[2021-01-28] MEDS: PRENATAL VITAMINS W/ FOLIC ACID TABLET (FP) PO SCH (09:49)
[2021-01-28] MEDS: amLODIPine BESYLATE 5 MG TABLET (FP) PO SCH (09:49)
[2021-01-28] MEDS: NICOTINE 10 MG CARTRIDGE (INHALER) IH PRN (09:50)
== END 2021-01-28 10:01 | disposition home or self-care (01) | DRG 772 ==
LOC: YASAS 17:39 → Y3W 17:40
PROVIDERS: ADMIT Allergy & Immunology; ATTEND Allergy & Immunology
PROC: HZ42ZZZ Group Counseling for Substance Abuse Treatment, Cognitive-Behavioral (ICD-10-PCS; principal; 2021-01-14)
DX: F10.20 Alcohol dependence, uncomplicated (principal); E78.5 Hyperlipidemia, unspecified; I10 Essential (primary) hypertension; N40.0 Benign prostatic hyperplasia without lower urinary tract symptoms; Z88.0 Allergy status to penicillin

== ENCOUNTER 2021-05-27 13:55 | Emergency (ER) | payer OTHER ==
[2021-05-27 14:06] VITALS: BP 149/84; PULSE 78; TEMP 98.2; BMI 26.4
== END 2021-05-27 15:05 | disposition home or self-care (01) ==
LOC: JERFT 13:55
DX: S91.332A Puncture wound without foreign body, left foot, initial encounter (principal); W45.0XXA Nail entering through skin, initial encounter
CPT/HCPCS: 99283-25